=== PATIENT | female | born 1980 | race Caucasian/White ===

== ENCOUNTER 2017-04-27 17:13 | Inpatient (IN) | payer MEDICARE, OTHER ==
[~2017-04-27] VITALS: Ht 167.6 cm; Wt 150.0 kg
[~2017-04-27 17:13] MED LIST: ALBU1AER INH; DULE100A PO; FURO20TA PO; LORA0.5T PO; METO50TA PO; NEUR600T PO; PHEN12.5 PO; PRIL40CA PO; PROZ40CA PO; RENATAB6 PO; SPIR25TA PO; TRAZ100 PO; TYLE3 PO; Z.0.WALKERFRONT; [UNRECOGNIZED DRUG - REMARK]
[2017-04-27 17:15] VITALS: BP 143/69; PULSE 88; RESP 20; TEMP 97; O2SAT 97
--- NOTE | 2017-04-27 19:43 | PD ---
HPI Chief Complaint: Pegger Dobby Looms Problem Time Seen by Provider: 19:37 Travel History International Travel<30 days: No Contact w/Intl Traveler<30days: No Traveled to known affect area: No History of Present Illness HPI Diagnoses a 36-year-old female with history of renal failure, anemia, asthma, who presents today with complaints of left upper extremity pain. Patient has an AV fistula in her left upper extremity. She states that she lost her thrill this morning. She reports pain and swelling at the fistula site. She states she's not had dialysis for a year. When asked why she was not getting dialysis , she reported it was secondary to financial difficulties. She does make some urine. She states last time she had blood work was probably a year ago. She seen Dr. De La Vega in the past. She denies a chest pain, chest pressure. She does report lower extremity edema that is been worsening over last several weeks. She also reports dyspnea on exertion. PFSH Past Medical History Asthma: Yes Blood Disorders: No Anxiety: Yes Depression: Yes Heart Rhythm Problems: No Cancer: No Cardiovascular Problems: Yes High Cholesterol: Yes Chemotherapy: No Chest Pain: No Congestive Heart Failure: No Diabetes: No Diminished Hearing: No Endocrine: No GERD: Yes Glaucoma: No Genitourinary: Yes Hepatitis: No Hiatal Hernia: No Hypertension: Yes Musculoskeletal: Yes Neurologic: Yes Reproductive: No Respiratory: Yes (ASTHMA) Renal Failure: Yes (FISTULA TO LUE) ?: Not LMP: 04/11/17 Past Surgical History Abdominal Surgery: No AICD: No Arteriovenous Shunt: No Cardiac Surgery: No Ear Surgery: No Endocrine Surgery: No Eye Surgery: No Genitourinary Surgery: No Joint Replacement: No Thoracic Surgery: No Other Surgery: Yes (left forearm fistula 05/10/2012) Social History Alcohol Use: No Tobacco Use: Yes (09/26 ppd) Substance Use: No Allergies-Medications (Allergen,Severity, Reaction): Coded Allergies: Tetracycline (Verified Allergy, Severe, Anaphylaxis, 12/24/15) Triaminic (Verified Allergy, Severe, Anaphylaxis, 12/24/15) Reported Meds & Prescriptions Reported Meds & Active Scripts Active No Active Prescriptions or Reported Medications Review of Systems Except as stated in HPI: all other systems reviewed are Neg General / Constitutional: No: Fever, Chills Eyes: No: Blurred Vision HENT: No: Headaches, Lightheadedness, Neck Pain Cardiovascular: No: Chest Pain or Discomfort, Palpitations Respiratory: Positive: Shortness of Breath, No: Cough, Wheezing Gastrointestinal: No: Nausea, Vomiting, Abdominal Pain Genitourinary: Positive: Other (she does make some urine.), No: Dysuria Musculoskeletal: Positive: Weakness, Pain (left upper vasquez he pain at the AV fistula site.), No: Edema Neurologic: No: Weakness, Dizziness, Syncope, Headache Physical Exam Narrative GENERAL: Well-developed well-nourished female in no acute respiratory distress. SKIN: Focused skin assessment warm/dry. HEAD: Atraumatic. Normocephalic. EYES: No scleral icterus. No injection or drainage. ENT: No nasal bleeding or discharge. Mucous membranes pink and moist. NECK: Trachea midline. No JVD. Supple. CARDIOVASCULAR: Regular rate and rhythm. No murmur appreciated. RESPIRATORY: No accessory muscle use. Breath sounds equal bilaterally. Decreased breath sounds secondary to patient's habitus. GASTROINTESTINAL: Abdomen soft, non-tender, nondistended. Hepatic and splenic margins not palpable. MUSCULOSKELETAL: No obvious deformities. No clubbing. No cyanosis. 2+ edema bilateral lower extremities. No calf tenderness. No Homans sign. NEUROLOGICAL: Awake and alert. No obvious cranial nerve deficits. Motor grossly within normal limits. Normal speech. PSYCHIATRIC: Appropriate mood and affect; insight and judgment normal. Data Data Last Documented VS Vital Signs Date Time Temp Pulse Resp B/P Pulse Ox O2 Delivery O2 Flow Rate FiO2 04/27/17 19:56 18 04/27/17 17:15 97.0 88 143/69 97 Room Air Orders Electrocardiogram (04/27/17 19:37) Complete Blood Count With Diff (04/27/17 19:37) Comprehensive Metabolic Panel (04/27/17 19:37) Prothrombin Time / Inr (Pt) (04/27/17 19:37) Act Partial Throm Time (Ptt) (04/27/17 19:37) Urinalysis - C+S If Indicated (04/27/17 19:37) Magnesium (Mg) (04/27/17 19:37) Phosphorus (Po4) (04/27/17 19:37) Chest, Single Ap (04/27/17 19:37) Iv Access Insert/Monitor (04/27/17 19:37) Ecg Monitoring (04/27/17 19:37) Oximetry (04/27/17 19:37) Urine Culture (04/27/17 19:50) Ceftriaxone Inj (Rocephin Inj) (04/27/17 20:45) Admit Order (Ed Use Only) (04/27/17 21:02) Potassium Chloride (Kcl) (04/27/17 21:15) Labs Laboratory Tests Test 04/27/17 19:50 White Blood Count 15.4 TH/MM3 Red Blood Count 3.53 MIL/MM3 Hemoglobin 9.1 GM/DL Hematocrit 29.7 % Mean Corpuscular Volume 84.3 FL Mean Corpuscular Hemoglobin 25.9 PG Mean Corpuscular Hemoglobin 30.7 % Concent Red Cell Distribution Width 17.3 % Platelet Count 404 TH/MM3 Mean Platelet Volume 6.9 FL Neutrophils (%) (Auto) 77.2 % Lymphocytes (%) (Auto) 14.8 % Monocytes (%) (Auto) 5.4 % Eosinophils (%) (Auto) 2.1 % Basophils (%) (Auto) 0.5 % Neutrophils # (Auto) 11.9 TH/MM3 Lymphocytes # (Auto) 2.3 TH/MM3 Monocytes # (Auto) 0.8 TH/MM3 Eosinophils # (Auto) 0.3 TH/MM3 Basophils # (Auto) 0.1 TH/MM3 CBC Comment AUTO DIFF Prothrombin Time 10.2 SEC Prothromb Time International 0.9 RATIO Ratio Activated Partial 31.2 SEC Thromboplast Time Urine Color LIGHT-YELLOW Urine Turbidity HAZY Urine pH 6.0 Urine Specific [place] 1.009 Urine Protein 30 mg/dL Urine Glucose (UA) NEG mg/dL Urine Ketones NEG mg/dL Urine Occult Blood SMALL Urine Nitrite NEG Urine Bilirubin NEG Urine Urobilinogen LESS THAN 2.0 MG/DL Urine Leukocyte Esterase LARGE Urine RBC 4 /hpf Urine WBC 36 /hpf Urine Squamous Epithelial 2 /hpf Cells Urine Amorphous Sediment RARE Urine Bacteria MANY /hpf Urine Mucus FEW /lpf Microscopic Urinalysis Comment CULTURE INDICATED Sodium Level 135 MEQ/L Potassium Level 3.1 MEQ/L Chloride Level 106 MEQ/L Carbon Dioxide Level 18.4 MEQ/L Anion Gap 11 MEQ/L Blood Urea Nitrogen 61 MG/DL Creatinine 7.74 MG/DL Estimat Glomerular Filtration 6 ML/MIN Rate Random Glucose 92 MG/DL Calcium Level 7.3 MG/DL Protein Corrected Calcium 7.2 MG/DL Phosphorus Level 1.7 MG/DL Magnesium Level 2.1 MG/DL Total Bilirubin 0.2 MG/DL Aspartate Amino Transf 8 U/L (AST/SGOT) Alanine Aminotransferase 12 U/L (ALT/SGPT) Alkaline Phosphatase 46 U/L Total Protein 7.5 GM/DL Albumin 2.4 GM/DL MDM Medical Decision Making Medical Screen Exam Complete: Yes Emergency Medical Condition: Yes Differential Diagnosis AV fistula malfunction versus CHF versus anemia versus worsening renal failure. Narrative Course 36-year-old female history renal failure, dialysis dependent, who presents today with complaints of loss of thrill from her AV fistula site. The patient states she's not had dialysis for over a year. She does make urine. She states that she stopped getting dialysis because there is a change in her Medicaid portion of her insurance. The patient has Medicare a and B but states that the residual cause of her dialysis and laboratory testing would be covered by Medicaid. She states that as stopped and she stopped getting dialysis. She reports last seen her primary care physician over a year ago. She was seen Dr. Lambert's office. The patient has multiple electrolyte abnormalities consistent with chronic renal failure. Her potassium was 3.1. She's been given 10 mEq of potassium times one dose. She does have an elevated white blood cell count and a hemoglobin of 9.1. Her urinalysis shows evidence of a UTI. She's been started on Rocephin 1 g I V times one dose. Urine cultures are pending at this time. The case was discussed with Dr. Ledezma and he was amenable and agreeable to admit her to his service despite her not being seen for quite some time. The case was also discussed with Dr. Kwong, on-call for vascular surgery. He reported that he will be going out of town tomorrow afternoon and recommended we put a consult in for Dr. Cutler will be taking over. Consult has been placed for Dr. Cutler. A consult has also been placed for Dr. Mendes who has seen the patient for her renal failure prior to her stopping dialysis. She'll be a full admission. Diagnosis Primary Impression: Dialysis AV fistula malfunction Additional Impressions: Anemia Hypokalemia Hypocalcemia metabolic derangement. cystitis. Cystitis Leukocytosis Admitting Information Admitting Physician Requests: Admit Scripts No Active Prescriptions or Reported Meds Gilles Martínez MD Apr 27, 2017 19:42
[2017-04-27 20:23] LABS: BACTERIA, URINE MANY /hpf; BLOOD, URINE SMALL (NEG); COMMENT (UR) CULTURE INDICATED; CULTURE IF INDICATED CULTURE INDICATED; GLUCOSE,URINE NEG (NEG); KETONE, URINE NEG (NEG); MUCUS URINE FEW /lpf (OCC); NITRITE,URINE NEG (NEG); SQUAMOUS EPITHELIAL CELL URINE 2 /hpf (0-5); URINE COLOR LIGHT-YELLOW (YELLW/STRAW)
--- NOTE | 2017-04-27 20:27 | RADRPT ---
EXAM DATE/TIME: 04/27/2017 19:45 [facility] COMPARISON: CHEST SINGLE AP, September 05, 2013, 14:19. INDICATIONS : Short of breath. MEDICAL HISTORY : Renal insufficiency. asthma. SURGICAL HISTORY : None. ENCOUNTER: Initial ACUITY: 1 day PAIN SCORE: 0/10 LOCATION: Bilateral chest FINDINGS: A single view of the chest demonstrates the lungs to be symmetrically aerated without evidence of mas s, infiltrate or effusion. The cardiomediastinal contours are unremarkable. Osseous structures are intact. CONCLUSION: The lungs are clear. Rey Velasquez MD on April 27, 2017 at 20:25 Board Certified Radiologist. This report was verified electronically.
[2017-04-27 20:31] LABS: AUTOMATED NEUTROPHIL # 11.9 TH/MM3 (1.8-7.7); BASOPHIL # 0.1 TH/MM3 (0-0.2); BASOPHIL % 0.5 % (0.0-2.0); EOSINOPHIL # 0.3 TH/MM3 (0-0.4); EOSINOPHIL % 2.1 % (0.0-4.0); HEMATOCRIT 29.7 % (35.0-46.0); LYMPH % 14.8 % (9.0-44.0); LYMPHOCYTE # 2.3 TH/MM3 (1.0-4.8); MEAN CELL VOLUME 84.3 FL (80.0-100.0); MEAN CORPUSCULAR HEMOGLOBIN 25.9 PG (27.0-34.0); MEAN CORPUSCULAR HGB CONC 30.7 % (32.0-36.0); MONO % 5.4 % (0.0-8.0); NEUT % 77.2 % (16.0-70.0); PLATELET COUNT 404 TH/MM3 (150-450); RED BLOOD COUNT 3.53 MIL/MM3 (4.00-5.30); RED CELL DISTRIBUTION WIDTH 17.3 % (11.6-17.2); WHITE BLOOD COUNT 15.4 TH/MM3 (4.0-11.0)
[2017-04-27 20:40] LABS: BICARBONATE 18.4 MEQ/L (21.0-32.0); MAGNESIUM 2.1 MG/DL (1.5-2.5); POTASSIUM 3.1 MEQ/L (3.5-5.1); TOTAL BILIRUBIN ADULT 0.2 MG/DL (0.2-1.0)
[2017-04-27 20:42] LABS: CALCIUM-PROTEIN CORRECTED 7.2 MG/DL (8.5-10.1)
[2017-04-27] MEDS ORDERED: cefTRIAXone INJ 1,000 MG in SODIUM CHLORIDE 0.9% INJ 100 ML IV ONE (20:45)
[2017-04-27 20:46] LABS: APTT (PATIENT) 31.2 SEC (24.3-30.1); HEMO FLAGS AUTO DIFF; INTERNATIONAL NORMALIZED RATIO 0.9 RATIO; PROTHROMBIN TIME - PATIENT 10.2 SEC (9.8-11.6)
[2017-04-27] MEDS ORDERED: POTASSIUM CHLORIDE 10 MEQ CONTROLLED RELEASE TAB PO ONE (21:15)
[2017-04-27] MEDS ORDERED: NALOXONE HCL 0.4 MG/ML AMP IV PRN (21:45)
[2017-04-27] MEDS ORDERED: ACETAMINOPHEN 325 MG TAB PO PRN (21:45)
[2017-04-27] MEDS ORDERED: SODIUM CHLORIDE 0.9% FLUSH 10 ML FLUSH IV FLUSH PRN (21:45)
[2017-04-27 22:10] LABS: BANDS 1 % (0-6); EOSINOPHILS 2 % (0-4); MYELOCYTES 1 % (0-0); NEUTROPHIL # MANUAL DIFF 12.3 TH/MM3 (1.8-7.7); PLATELET ESTIMATE SMEAR HIGH (NORMAL); PLATELET MORPHOLOGY NORMAL (NORMAL); POLYS (SEG NEUTROPHILS) 78 % (16-70); SCAN/DIFF FINAL DIFF MANUAL; WBC DIFF SAMPLE 100
[2017-04-27 22:47] VITALS: RESP 18; O2SAT 100
[2017-04-28] VITALS (7 sets, daily range): BP systolic 109–144; BP diastolic 58–72; PULSE 58–90; RESP 16–18; TEMP 97.2–98.2; O2SAT 96–100
[2017-04-28] MEDS: ACETAMINOPHEN/HYDROcodone 325 MG/5 MG TAB PO PRN ×3 (00:08→21:09)
--- NOTE | 2017-04-28 06:56 | HHI.HP ---
History of Present Illness Service Family medicine Primary Care Physician Dimas Solorzano, DO Admission Diagnosis av fistula failure, renal failure, metabolic derangement. Diagnoses: (1) Dialysis AV fistula malfunction Diagnosis: Principal (2) ESRD (end stage renal disease) Diagnosis: Principal (3) Leukocytosis Diagnosis: Principal (4) Hypocalcemia Diagnosis: Principal (5) Hypokalemia Diagnosis: Principal (6) Anemia Diagnosis: Principal History of Present Illness Patient is a 36-year-old female with history of renal failure, anemia, asthma, who presents today with complaints of left upper extremity pain. Patient has an AV fistula in her left upper extremity. She states that she lost her thrill yesterday. She reports pain and swelling at the fistula site. She states she' s not had dialysis for a year. When asked why she was not getting dialysis, she reported it was secondary to financial difficulties. She does make some urine. She states last time she had blood work was probably a year ago. She seen Dr. De La Vega in the past. She denies a chest pain, chest pressure. She does report lower extremity edema that is been worsening over last several weeks. She also reports dyspnea on exertion. Review of Systems Constitutional: COMPLAINS OF: Fatigue, Change in appetite Respiratory: COMPLAINS OF: Shortness of breath (on exertion), DENIES: Cough, Snoring, Sputum production Cardiovascular: COMPLAINS OF: Lower Extremity Edema, DENIES: Chest pain, Palpitations Gastrointestinal: DENIES: Abdominal pain, Black stools, Constipation, Diarrhea Psychiatric: COMPLAINS OF: Anxiety Past Family Social History Allergies: Coded Allergies: Tetracycline (Verified Allergy, Severe, Anaphylaxis, 12/24/15) Triaminic (Verified Allergy, Severe, Anaphylaxis, 12/24/15) Past Medical History Asthma Anxiety depression HLD HTN Renal failure- Past Surgical History left forearm fistula Active Ordered Medications Current Medications Medications (Trade) Dose Ordered Sig/Harjit Route Start Time Stop Time Status Last Admin (NS Flush) 2 ml UNSCH PRN IV FLUSH 04/27/17 21:45 (NS Flush) 2 ml BID IV FLUSH 04/28/17 09:00 04/28/17 09:09 (Tylenol) 650 mg Q4H PRN PO 04/27/17 21:45 (Narcan Inj) 0.4 mg UNSCH PRN IV 04/27/17 21:45 (Habitrol 21 Mg Patch.24 Hr) 1 patch DAILY T-DERMAL 04/28/17 09:00 04/28/17 09:09 Miscellaneous Information 1 HS T-DERMAL 04/28/17 21:00 Acetaminophen/ Hydrocodone Bitart 1 tab 1 tab Q4H PRN PO 04/27/17 23:45 04/28/17 00:08 (NS 1000 ml Inj) 1,000 ml @ 0 mls/hr Q0M PRN IV 04/28/17 10:06 UNV Heparin Sodium (Porcine) 8000 units 8,000 units UNSCH PRN IVF 04/28/17 10:15 UNV Sodium Chloride 1,000 ml @ 200 mls/hr Q5H PRN IV 04/28/17 10:06 UNV (NS 1000 ml Inj) 1,000 ml @ 0 mls/hr Q0M PRN IV 04/28/17 10:06 UNV (Mannitol Inj) 12.5 gm UNSCH PRN IV 04/28/17 10:15 UNV (Albumin 25% Inj) 25 gm UNSCH PRN IV 04/28/17 10:15 UNV (NS Flush) 5 ml UNSCH PRN IV FLUSH 04/28/17 10:15 UNV (Heparin Inj) UNSCH PRN .XX 04/28/17 10:15 UNV (Gentamicin (Dialysis) Inj) 20 mg UNSCH PRN IV 04/28/17 10:15 UNV (Zofran Inj) 4 mg UNSCH PRN IV 04/28/17 10:15 UNV (Tylenol) 650 mg UNSCH PRN PO 04/28/17 10:15 UNV (Benadryl) 25 mg UNSCH PRN PO 04/28/17 10:15 UNV (Nitrostat Sl) 0.4 mg UNSCH PRN SL 04/28/17 10:15 UNV (Catapres) 0.1 mg UNSCH PRN PO 04/28/17 10:15 UNV (Epogen Inj) 4,000 units UNSCH PRN IV 04/28/17 10:15 UNV (Gelfoam 12 Mm/7 Mm Top) 1 foam UNSCH PRN TOP 04/28/17 10:15 UNV (K-Phos) 500 mg DAILY PO 04/28/17 12:00 UNV Family History Mother and father with HTN Social History Smokes 1 pk per day No ETOH use Lives with parents Disabled Physical Exam Vital Signs Vital Signs Date Time Temp Pulse Resp B/P Pulse Ox O2 Delivery O2 Flow Rate FiO2 04/28/17 04:00 97.2 58 18 115/66 96 04/28/17 00:00 98.2 73 17 109/60 98 04/27/17 22:47 18 100 04/27/17 19:56 18 04/27/17 17:15 97.0 88 20 143/69 97 Room Air Physical Exam GENERAL: Alert and cooperative. Obese SKIN: No rashes, ecchymoses or lesions. Cool and dry. Left arm fistula site with swelling EYES: Pupils equal round and reactive.No injection or drainage. CARDIOVASCULAR: Regular rate and rhythm without murmurs, gallops, or rubs. RESPIRATORY: Clear to auscultation. Breath sounds equal bilaterally. No wheezes , rales, or rhonchi. GASTROINTESTINAL: Abdomen soft, non-tender, and large. No hepato-splenomegaly, or palpable masses. No guarding. MUSCULOSKELETAL: Extremities without clubbing, cyanosis, or edema. No joint tenderness, effusion, or edema noted. No calf tenderness. Negative Homans sign bilaterally. NEUROLOGICAL: Awake and alert. Normal speech. Laboratory Laboratory Tests Test 04/27/17 19:50 White Blood Count 15.4 Red Blood Count 3.53 Hemoglobin 9.1 Hematocrit 29.7 Mean Corpuscular Volume 84.3 Mean Corpuscular Hemoglobin 25.9 Mean Corpuscular Hemoglobin 30.7 Concent Red Cell Distribution Width 17.3 Platelet Count 404 Mean Platelet Volume 6.9 Neutrophils (%) (Auto) 77.2 Lymphocytes (%) (Auto) 14.8 Monocytes (%) (Auto) 5.4 Eosinophils (%) (Auto) 2.1 Basophils (%) (Auto) 0.5 Neutrophils # (Auto) 11.9 Lymphocytes # (Auto) 2.3 Monocytes # (Auto) 0.8 Eosinophils # (Auto) 0.3 Basophils # (Auto) 0.1 CBC Comment AUTO DIFF Differential Total Cells 100 Counted Neutrophils % (Manual) 78 Band Neutrophils % 1 Lymphocytes % 13 Monocytes % 5 Eosinophils % 2 Neutrophils # (Manual) 12.3 Myelocytes 1 Differential Comment FINAL DIFF MANUAL Platelet Estimate HIGH Platelet Morphology Comment NORMAL Prothrombin Time 10.2 Prothromb Time International 0.9 Ratio Activated Partial 31.2 Thromboplast Time Urine Color LIGHT-YELLOW Urine Turbidity HAZY Urine pH 6.0 Urine Specific [place] 1.009 Urine Protein 30 Urine Glucose (UA) NEG Urine Ketones NEG Urine Occult Blood SMALL Urine Nitrite NEG Urine Bilirubin NEG Urine Urobilinogen LESS THAN 2.0 Urine Leukocyte Esterase LARGE Urine RBC 4 Urine WBC 36 Urine Squamous Epithelial 2 Cells Urine Amorphous Sediment RARE Urine Bacteria MANY Urine Mucus FEW Microscopic Urinalysis Comment CULTURE INDICATED Sodium Level 135 Potassium Level 3.1 Chloride Level 106 Carbon Dioxide Level 18.4 Anion Gap 11 Blood Urea Nitrogen 61 Creatinine 7.74 Estimat Glomerular Filtration 6 Rate Random Glucose 92 Calcium Level 7.3 Protein Corrected Calcium 7.2 Phosphorus Level 1.7 Magnesium Level 2.1 Total Bilirubin 0.2 Aspartate Amino Transf 8 (AST/SGOT) Alanine Aminotransferase 12 (ALT/SGPT) Alkaline Phosphatase 46 Total Protein 7.5 Albumin 2.4 Date/Time Procedure Status Source Growth 04/27/17 19:50 Urine Culture Worksheet Urine Random Urine Pending Result Diagram: 04/27/17194904/27/171949 Imaging Last 72 hours Impressions Chest X-Ray 04/27/171936 Signed Impressions: Service Date/Time: April 19:45 - CONCLUSION: The lungs are clear. Rey Velasquez MD Assessment and Plan Problem List: (1) Dialysis AV fistula malfunction Status: Acute Plan: Left arm fistula site with swelling. No redness noted. Vascular surgery consulted (2) ESRD (end stage renal disease) Status: Acute Plan: Patient with creat of 7.70 and BUN 79. Uremic Nephrology consulted. Plan for peritoneal dialysis. Interventional to place. (3) Leukocytosis Status: Acute Plan: Has received one dose of Rocephin. WBC improved at 12.5 Urine cultures pending (4) Hypocalcemia Status: Acute Plan: Likely due to secondary hyperparathyroidism PTH pending (5) Hypokalemia Status: Acute Plan: Potassium 3.2 will have nephrology replace (6) Anemia Status: Acute Plan: HGB 7.7. Most likely form CKD. Anemia panel ordered Assessment and Plan Assessment and plan discussed with Dr. Solorzano Discussed Condition With Nursing Physician Attestation I and the [employer]AMP FORKL[employer] OPERATOR have both examined this patient and reviewed this note and I agree with these findings and plan of care. Jennifer Calvo Apr 28, 2017 06:55
[2017-04-28] MEDS: SODIUM CHLORIDE 0.9% FLUSH 10 ML FLUSH IV FLUSH SCH ×2 (09:09→20:12)
[2017-04-28] MEDS: NICOTINE 21 MG/24 HR PATCH T-DERMAL SCH (09:09)
[2017-04-28 09:56] LABS: AUTOMATED NEUTROPHIL # 9.3 TH/MM3 (1.8-7.7); BASOPHIL # 0.1 TH/MM3 (0-0.2); BASOPHIL % 0.8 % (0.0-2.0); EOSINOPHIL # 0.3 TH/MM3 (0-0.4); EOSINOPHIL % 2.3 % (0.0-4.0); HEMATOCRIT 24.3 % (35.0-46.0); HEMO FLAGS DIFF FINAL; LYMPH % 17.9 % (9.0-44.0); LYMPHOCYTE # 2.2 TH/MM3 (1.0-4.8); MEAN CELL VOLUME 84.9 FL (80.0-100.0); MEAN CORPUSCULAR HEMOGLOBIN 26.7 PG (27.0-34.0); MEAN CORPUSCULAR HGB CONC 31.5 % (32.0-36.0); MONO % 4.9 % (0.0-8.0); NEUT % 74.1 % (16.0-70.0); PLATELET COUNT 320 TH/MM3 (150-450); RED BLOOD COUNT 2.86 MIL/MM3 (4.00-5.30); RED CELL DISTRIBUTION WIDTH 16.8 % (11.6-17.2); WHITE BLOOD COUNT 12.5 TH/MM3 (4.0-11.0)
--- NOTE | 2017-04-28 10:04 | PD.CONS ---
HPI Service Nephrology Consult Requested By Dr. Martínez Reason for Consult End-stage renal disease Primary Care Physician Dimas Solorzano, DO History of Present Illness 36-year-old white female with morbid obesity, asthma, hypertension, ESRD who is noncompliant with hemodialysis and stop coming to the dialysis center last year , she had admission in the hospital in December 2015 at that time she was on hemodialysis and afterward placed in the clinic and she refused to show up she was seen in the clinic one time and promised to resume her dialysis but she never did, she developed AV fistula pain in the left arm with the swelling near the arterial site, she states her appetite is poor, gets easily fatigued, she is afraid of needles and stated her skin was tightening from needle alejandro and thus far she did not do dialysis, she can consider peritoneal dialysis. Review of Systems Constitutional: COMPLAINS OF: Fatigue Gastrointestinal: COMPLAINS OF: Anorexia Musculoskeletal: COMPLAINS OF: Joint pain, Muscle aches Psychiatric: COMPLAINS OF: Anxiety Past Family Social History Allergies: Coded Allergies: Tetracycline (Verified Allergy, Severe, Anaphylaxis, 12/24/15) Triaminic (Verified Allergy, Severe, Anaphylaxis, 12/24/15) Past Medical History End-stage renal disease Anemia Hyperparathyroidism Uremia AV fistula fistula placed Asthma Morbid obesity Noncompliance with dialysis Past Surgical History AV fistula left arm ORIF right humerus Reported Medications Reported Meds & Active Scripts Active No Active Prescriptions or Reported Medications Active Ordered Medications Current Medications Medications (Trade) Dose Ordered Sig/Harjit Route Start Time Stop Time Status Last Admin (NS Flush) 2 ml UNSCH PRN IV FLUSH 04/27/17 21:45 (NS Flush) 2 ml BID IV FLUSH 04/28/17 09:00 04/28/17 09:09 (Tylenol) 650 mg Q4H PRN PO 04/27/17 21:45 (Narcan Inj) 0.4 mg UNSCH PRN IV 04/27/17 21:45 (Habitrol 21 Mg Patch.24 Hr) 1 patch DAILY T-DERMAL 04/28/17 09:00 04/28/17 09:09 Miscellaneous Information 1 HS T-DERMAL 04/28/17 21:00 ([place] 5-325 Mg) 1 tab Q4H PRN PO 04/27/17 23:45 04/28/17 00:08 Family History Noncontributory Social History Smokes cigarettes half a pack per day Denies alcohol abuse Physical Exam Vital Signs Vital Signs Date Time Temp Pulse Resp B/P Pulse Ox O2 Delivery O2 Flow Rate FiO2 04/28/17 08:00 97.4 79 18 128/62 100 04/28/17 04:00 97.2 58 18 115/66 96 04/28/17 00:00 98.2 73 17 109/60 98 04/27/17 22:47 18 100 04/27/17 19:56 18 04/27/17 17:15 97.0 88 20 143/69 97 Room Air Physical Exam GENERAL: Well-nourished, well-developed obese patient. SKIN: Warm and dry. HEAD: Normocephalic. EYES: No scleral icterus. No injection or drainage. NECK: Supple, trachea midline. No JVD or lymphadenopathy. CARDIOVASCULAR: Regular rate and rhythm without murmurs, gallops, or rubs. RESPIRATORY: Breath sounds equal bilaterally. No accessory muscle use. GASTROINTESTINAL: Abdomen soft, non-tender, nondistended. EXTREMITIES: No cyanosis, AV fistula with bulging swelling tenderness present Lower extremity edema 2+ NEUROLOGICAL: Awake, alert, and oriented x 3. Non-focal. Laboratory Laboratory Tests Test 04/27/17 19:50 White Blood Count 15.4 Red Blood Count 3.53 Hemoglobin 9.1 Hematocrit 29.7 Mean Corpuscular Volume 84.3 Mean Corpuscular Hemoglobin 25.9 Mean Corpuscular Hemoglobin 30.7 Concent Red Cell Distribution Width 17.3 Platelet Count 404 Mean Platelet Volume 6.9 Neutrophils (%) (Auto) 77.2 Lymphocytes (%) (Auto) 14.8 Monocytes (%) (Auto) 5.4 Eosinophils (%) (Auto) 2.1 Basophils (%) (Auto) 0.5 Neutrophils # (Auto) 11.9 Lymphocytes # (Auto) 2.3 Monocytes # (Auto) 0.8 Eosinophils # (Auto) 0.3 Basophils # (Auto) 0.1 CBC Comment AUTO DIFF Differential Total Cells 100 Counted Neutrophils % (Manual) 78 Band Neutrophils % 1 Lymphocytes % 13 Monocytes % 5 Eosinophils % 2 Neutrophils # (Manual) 12.3 Myelocytes 1 Differential Comment FINAL DIFF MANUAL Platelet Estimate HIGH Platelet Morphology Comment NORMAL Prothrombin Time 10.2 Prothromb Time International 0.9 Ratio Activated Partial 31.2 Thromboplast Time Urine Color LIGHT-YELLOW Urine Turbidity HAZY Urine pH 6.0 Urine Specific [place] 1.009 Urine Protein 30 Urine Glucose (UA) NEG Urine Ketones NEG Urine Occult Blood SMALL Urine Nitrite NEG Urine Bilirubin NEG Urine Urobilinogen LESS THAN 2.0 Urine Leukocyte Esterase LARGE Urine RBC 4 Urine WBC 36 Urine Squamous Epithelial 2 Cells Urine Amorphous Sediment RARE Urine Bacteria MANY Urine Mucus FEW Microscopic Urinalysis Comment CULTURE INDICATED Sodium Level 135 Potassium Level 3.1 Chloride Level 106 Carbon Dioxide Level 18.4 Anion Gap 11 Blood Urea Nitrogen 61 Creatinine 7.74 Estimat Glomerular Filtration 6 Rate Random Glucose 92 Calcium Level 7.3 Protein Corrected Calcium 7.2 Phosphorus Level 1.7 Magnesium Level 2.1 Total Bilirubin 0.2 Aspartate Amino Transf 8 (AST/SGOT) Alanine Aminotransferase 12 (ALT/SGPT) Alkaline Phosphatase 46 Total Protein 7.5 Albumin 2.4 Date/Time Procedure Status Source Growth 04/27/17 19:50 Urine Culture Worksheet Urine Random Urine Pending Result Diagram: 04/27/17 1950 04/27/171949 Imaging Last Impressions Chest X-Ray 04/27/171936 Signed Impressions: Service Date/Time: April 19:45 - CONCLUSION: The lungs are clear. Rey Velasquez MD Assessment and Plan Problem List: (1) ESRD (end stage renal disease) Plan: I have a lengthy discussion with her and though she has anxiety and depression, pH of needles and has stopped coming to the office and dialysis center, patient is again reminded that she needs renal replacement therapy and agreed to proceed with peritoneal dialysis, I did ask her about placement of catheter as her AV fistula malfunctioning and need surgical intervention. She agreed to it and I will place a consult to radiology for Vas-Cath. She understands she needs to be committed to do dialysis either peritoneal dialysis or hemodialysis as leaving a port for dialysis can be dangerous if she discontinued her dialysis on her own, complication includes a infections, blood clots, bleeding problems and can lead to increased morbidity and mortality. (2) Uremia Plan: She agreed to do dialysis (3) Dialysis AV fistula malfunction Plan: Vascular surgery consulted (4) Cystitis Plan: Started on ceftriaxone 1 dose follow cultures (5) Leukocytosis Plan: Likely due to infection and vascular compromise in the left forearm (6) Hypokalemia Plan: Malnutrition with low calcium and low protein (7) Hypocalcemia Plan: Likely due to secondary hyperparathyroidism (8) Hypertension Plan: Anterior to monitor Bipin De La Vega MD Apr 28, 2017 10:04
[2017-04-28] MEDS ORDERED: SODIUM CHLOR 0.9% 1000 ML INJ 1,000 ML IV PRN ×3 (10:06)
[2017-04-28 10:12] LABS: ANION GAP 10 MEQ/L (5-15); AST (GOT) 7 U/L (15-37); BICARBONATE 21.6 MEQ/L (21.0-32.0); BLOOD UREA NITROGEN 59 MG/DL (7-18); CHLORIDE 107 MEQ/L (98-107); GLOMERULAR FILTRATION RATE 6 ML/MIN (>89); POTASSIUM 3.2 MEQ/L (3.5-5.1); SODIUM (NA) 139 MEQ/L (136-145)
[2017-04-28] MEDS ORDERED: diphenhydrAMINE HCL 25 MG CAP PO PRN (10:15)
[2017-04-28] MEDS ORDERED: NITROGLYCERIN 0.4 MG SL 25 TABS/BTL SL PRN (10:15)
[2017-04-28] MEDS ORDERED: MANNITOL 12.5 GM/50 ML VIAL IV PRN (10:15)
[2017-04-28] MEDS ORDERED: GELATIN 12 MM/7 MM FOAM TOP PRN (10:15)
[2017-04-28] MEDS ORDERED: HEPARIN SODIUM - IV 10,000 UNITS/10 ML VIAL IVF PRN (10:15)
[2017-04-28] MEDS ORDERED: SODIUM CHLORIDE 0.9% FLUSH 10 ML FLUSH IV FLUSH PRN (10:15)
[2017-04-28] MEDS ORDERED: ALBUMIN HUMAN 25% 25 GM/100 ML BAGP IV PRN (10:15)
[2017-04-28] MEDS ORDERED: cloNIDine HCL 0.1 MG TAB PO PRN (10:15)
[2017-04-28 10:16] LABS: ALKALINE PHOSPHATASE 37 U/L (45-117); ALT (GPT) 9 U/L (10-53); TOTAL BILIRUBIN ADULT 0.1 MG/DL (0.2-1.0)
[2017-04-28] MEDS: POTASSIUM PHOSPHATE MONOBASIC 500 MG TAB PO SCH (10:57)
--- NOTE | 2017-04-28 11:54 | EKG ---
Date Performed: 04/27/2017 Time Performed: 19:49:57 PTAGE: 36 years EKG: Sinus rhythm ST DEVIATION AND MODERATE T-WAVE ABNORMALITY, CONSIDER LATERAL ISCHEMIA ABNORMAL ECG PREVIOUS TRACING : 02/18/2016 15.03 Compared to the prior study, anterolateral T-wave changes a nd ST-T segment depression is new. DOCTOR: Wally Galloway Interpretating Date/Time 04/28/2017 11:52:21
--- NOTE | 2017-04-28 12:17 | PD.RAD ---
Post Procedure Progress Note Pre Procedure Diagnosis: (1) Dialysis AV fistula malfunction (2) Renal failure Post Procedure Diagnosis: (1) Dialysis AV fistula malfunction (2) Renal failure Procedure Date: Apr 28, 2017 Supervising Radiologist: Rey Barrett JR Proceduralist/Assist: Vangie Soria, RT(R), Natalya Plasencia RT(R)() Anesthesia: Local Plan of Activity Patient to Unit: Nursing Unit Patient Condition: Good See PACS Report for procedural detail/treatment Central Venous Access Device Procedure 1 Right Internal Jugular Hemodialysis Catheter Non-Tunneled Placement dual lumen Italian: 14 Findings: Vascath in good position. OK to use. Jr. Arnold,Rey Olvera MD Apr 28, 2017 12:17
[2017-04-28] MEDS ORDERED: HEPARIN SODIUM - IV 2,000 UNITS/2 ML VIAL IV FLUSH PRN (12:30)
[2017-04-28] MEDS ORDERED: SODIUM CHLORIDE 0.9% FLUSH 10 ML FLUSH IVF PRN (12:30)
--- NOTE | 2017-04-28 14:31 | RADRPT ---
EXAM DATE/TIME: 04/28/2017 11:48 [facility] COMPARISON: No previous studies available for comparison. INDICATIONS : Patient is in need of placement of a temporary dialysis catheter due to ESRD. MEDICAL HISTORY : History of asthma, HTN, DM, anemia, hyperparathyroidism, uremia. SURGICAL HISTORY : Left AVF placement, right humerus ORIF, permacath placement and removal. ENCOUNTER: Initial ACUITY: 1 day PAIN SCORE: 0/10 FLUORO TIME: 0.4 minutes IMAGE SERIES: 1 ACCESS: Right internal jugular vein MEDICATION(S): 1.) 2500 units Heparin catheter lock DEVICE(S): 1.) 14 Israeli dual lumen 20 cm Schon catheter PROCEDURE : 1. Ultrasound guided venipuncture. 2. Fluoroscopic guidance. 3. Central line placement. The risks, benefits and alternatives to the procedure were explained and verbal and written consent w as obtained. The site was prepped in sterile fashion. Full sterile technique was used, including ca p, mask, sterile gloves and gown and a large sterile sheet. Hand hygiene and 2% chlorhexidine prep w as utilized per protocol for cutaneous antisepsis with appropriate dry time for site. The skin and subcutaneous tissues were infiltrated with local anesthetic solution. A suitable site a claudia the vein was selected with ultrasound and fluoroscopic guidance. A small incision was made. Th e vein was accessed under direct ultrasound visualization using the micropuncture technique. The landy ropuncture set was exchanged for a 0.035 wire. The tract was dilated. The catheter was advanced int o position under direct fluoroscopic visualization. The catheter was fixed in place with suture and a sterile dressing was applied. The patient tolerated the procedure well and there were no complications. CONCLUSION: Uncomplicated line placement as above. Rey Barrett Jr., MD on April 28, 2017 at 13:48 Board Certified Radiologist. This report was verified electronically.
[2017-04-28] MEDS: ACETAMINOPHEN 325 MG TAB PO PRN (14:41)
[2017-04-28] MEDS: HEPARIN SODIUM - IV 10,000 UNITS/10 ML VIAL PRN (14:41)
[2017-04-28] MEDS: EPOETIN ALFA 10,000 UNITS/ML VIAL IV PRN (14:41)
[2017-04-28] MEDS: GENTAMICIN SULFATE (DIALYSIS USE ONLY) 20 MG/2 ML VIAL IV PRN (14:41)
--- NOTE | 2017-04-28 17:23 | RADRPT ---
EXAM DATE/TIME: 04/28/2017 16:03 [facility] COMPARISON: No previous studies available for comparison. INDICATIONS : Arterial venous fistula. MEDICAL HISTORY : Hypercholesterolemia. Hypertension. Asthma. Dyspnea. GERD. Renal failure. Diabetes. Depression. SURGICAL HISTORY : Fistula left lower arm. ORIF right humerus. ENCOUNTER: Initial ACUITY: 4 - 6 days PAIN SCORE: 6/10 LOCATION: Bilateral arms. CEPHALIC: ORIGIN: Right 4 mm Left 7 mm MID-ARM: Right 4 mm Left 7 mm ELBOW: Right 5 mm Left 7 mm BASILIC: ORIGIN: Right 4 mm Left 8 mm MID-ARM: Right 4 mm Left 7 mm ELBOW: Right 5 mm Left 6 mm ARTERIES: BRACHIAL: Right 3 mm Left 5 mm ULNAR: Right 3 mm Left 3 mm RADIAL: Right 2 mm Left 4 mm VEINS: RADIAL: Right 2 mm Left 2 mm ULNAR: Right 1 mm Left 1 mm FINDINGS: The venous system of the upper extremities are patent by color Doppler imaging. Measurements of the arm veins (in mm) are listed above. CONCLUSION: Upper extremity venous mapping as described above. Ritesh Resendiz MD FACR on April 28, 2017 at 17:21 Board Certified Radiologist. This report was verified electronically.
--- NOTE | 2017-04-28 17:24 | RADRPT ---
EXAM DATE/TIME: 04/28/2017 15:37 [facility] COMPARISON: No previous studies available for comparison. INDICATIONS : Arterial venous fistula. MEDICAL HISTORY : Hypercholesterolemia. Hypertension. Asthma. Dyspnea. GERD. Renal failure. Diabetes. Depression. SURGICAL HISTORY : Fistula left upper arm. ORIF right humerus. ENCOUNTER: Initial ACUITY: 1 day PAIN SCORE: 2/10 LOCATION: Bilateral arms. FINDINGS: RIGHT UPPER EXTREMITY: There is spontaneous flow documented in the brachial, basilic, cephalic, axillary, and subclavian vei ns. The vessels are compressible and augmentation response is documented. No filling defects are se en. The flow is phasic with respiration. Direction of flow in the jugular vein is caudal. LEFT UPPER EXTREMITY: There is spontaneous flow documented in the brachial, basilic, cephalic, axillary, and subclavian vei ns. The vessels are compressible and augmentation response is documented. No filling defects are se en. The flow is phasic with respiration. Direction of flow in the jugular vein is caudal. CONCLUSION: Negative for deep or superficial thrombosis. Ritesh Resendiz MD FACR on April 28, 2017 at 17:22 Board Certified Radiologist. This report was verified electronically.
--- NOTE | 2017-04-28 17:52 | PD.CONS ---
cc: Nii Wang MD HPI Service General Surgery Consult Requested By Dr. De La Vega Reason for Consult Peritoneal dialysis catheter placement Primary Care Physician Dimas Solorzano, DO History of Present Illness This is a 36-year-old female with a past medical history of morbid obesity, asthma, hypertension, and end-stage renal disease--- noncompliant. The patient came to the emergency room for evaluation of her left AV fistula which was causing her pain. She denies fevers and chills. The patient has been on hemodialysis for several years but is very noncompliant. Her last hemodialysis treatment was approximately 1 year ago. The patient does not like hemodialysis and states that the needle used to access her AV fistula cause her pain. She would like to be evaluated for a peritoneal dialysis catheter placement. Review of Systems Constitutional: DENIES: Fatigue, Fever, Chills Endocrine: DENIES: Polydipsia, Polyuria, Polyphagia Eyes: DENIES: Eye inflammation Ears, nose, mouth, throat: DENIES: Vertigo Respiratory: DENIES: Snoring Cardiovascular: DENIES: Palpitations Gastrointestinal: DENIES: Black stools, Bloody stools Genitourinary: DENIES: Urinary frequency Musculoskeletal: DENIES: Joint pain Integumentary: DENIES: Abnormal pigmentation Hematologic/lymphatic: DENIES: Bruising Immunologic/allergic: DENIES: Eczema Neurologic: DENIES: Headache, Localized weakness Psychiatric: DENIES: Mood changes, Depression, Hallucinations Past Family Social History Past Medical History Morbidly obese Asthma next find hypertension End-stage renal disease--- noncompliant with hemodialysis Past Surgical History Left AV fistula placement ORIF of humerus Reported Medications See chart Allergies: Coded Allergies: Tetracycline (Verified Allergy, Severe, Anaphylaxis, 12/24/15) Triaminic (Verified Allergy, Severe, Anaphylaxis, 12/24/15) Active Ordered Medications Current Medications Medications (Trade) Dose Ordered Sig/Harjit Route Start Time Stop Time Status Last Admin (NS Flush) 2 ml UNSCH PRN IV FLUSH 04/27/17 21:45 (NS Flush) 2 ml BID IV FLUSH 04/28/17 09:00 04/28/17 09:09 (Tylenol) 650 mg Q4H PRN PO 04/27/17 21:45 (Narcan Inj) 0.4 mg UNSCH PRN IV 04/27/17 21:45 (Habitrol 21 Mg Patch.24 Hr) 1 patch DAILY T-DERMAL 04/28/17 09:00 04/28/17 09:09 Miscellaneous Information 1 HS T-DERMAL 04/28/17 21:00 Acetaminophen/ Hydrocodone Bitart 1 tab 1 tab Q4H PRN PO 04/27/17 23:45 04/28/17 15:35 (NS 1000 ml Inj) 1,000 ml @ 0 mls/hr Q0M PRN IV 04/28/17 10:06 Heparin Sodium (Porcine) 8000 units 8,000 units UNSCH PRN IVF 04/28/17 10:15 Sodium Chloride 1,000 ml @ 200 mls/hr Q5H PRN IV 04/28/17 10:06 (NS 1000 ml Inj) 1,000 ml @ 0 mls/hr Q0M PRN IV 04/28/17 10:06 (Mannitol Inj) 12.5 gm UNSCH PRN IV 04/28/17 10:15 (Albumin 25% Inj) 25 gm UNSCH PRN IV 04/28/17 10:15 (NS Flush) 5 ml UNSCH PRN IV FLUSH 04/28/17 10:15 (Heparin Inj) UNSCH PRN .XX 04/28/17 10:15 04/28/17 14:41 (Gentamicin (Dialysis) Inj) 20 mg UNSCH PRN IV 04/28/17 10:15 04/28/17 14:41 (Zofran Inj) 4 mg UNSCH PRN IV 04/28/17 10:15 (Tylenol) 650 mg UNSCH PRN PO 04/28/17 10:15 04/28/17 14:41 (Benadryl) 25 mg UNSCH PRN PO 04/28/17 10:15 (Nitrostat Sl) 0.4 mg UNSCH PRN SL 04/28/17 10:15 (Catapres) 0.1 mg UNSCH PRN PO 04/28/17 10:15 (Epogen Inj) 4,000 units UNSCH PRN IV 04/28/17 10:15 04/28/17 14:41 (Gelfoam 12 Mm/7 Mm Top) 1 foam UNSCH PRN TOP 04/28/17 10:15 (K-Phos) 500 mg DAILY PO 04/28/17 12:00 04/28/17 10:57 (Pepcid) 10 mg BID PO 04/28/17 21:00 (NS Flush) UNSCH PRN IVF 04/28/17 12:30 (Heparin Inj) UNSCH PRN IV FLUSH 04/28/17 12:30 Family History Both mother and father had hypertension Social History Positive tobacco use--approximately 1 pack per day Denies ETOH use Denies illicit drug use Physical Exam Vital Signs Vital Signs Date Time Temp Pulse Resp B/P Pulse Ox O2 Delivery O2 Flow Rate FiO2 04/28/17 16:35 18 04/28/17 15:41 18 04/28/17 12:00 98.0 71 18 113/58 100 04/28/17 08:00 97.4 79 18 128/62 100 04/28/17 04:00 97.2 58 18 115/66 96 04/28/17 00:00 98.2 73 17 109/60 98 04/27/17 22:47 18 100 04/27/17 19:56 18 Physical Exam GENERAL: Morbidly obese 36-year-old female resting in bed in no acute distress. SKIN: Left AV fistula--tender to palpation; no bruits/thrill HEAD: Atraumatic. Normocephalic. EYES: Pupils equal and round. No scleral icterus. No injection or drainage. ENT: No nasal bleeding or discharge. Mucous membranes pink and moist. NECK: Trachea midline. CARDIOVASCULAR: Regular rate and rhythm. RESPIRATORY: No accessory muscle use. Clear to auscultation. Breath sounds equal bilaterally. GASTROINTESTINAL: Abdomen soft, non-tender, nondistended. Obese. MUSCULOSKELETAL: Extremities without clubbing, cyanosis, or edema. No obvious deformities. NEUROLOGICAL: Awake and alert. No obvious cranial nerve deficits. Motor grossly within normal limits. Five out of 5 muscle strength in the arms and legs. Normal speech. PSYCHIATRIC: Appropriate mood and affect; insight and judgment normal. Laboratory Laboratory Tests Test 04/27/17 04/28/17 19:50 08:30 White Blood Count 15.4 12.5 Red Blood Count 3.53 2.86 Hemoglobin 9.1 7.7 Hematocrit 29.7 24.3 Mean Corpuscular Volume 84.3 84.9 Mean Corpuscular Hemoglobin 25.9 26.7 Mean Corpuscular Hemoglobin 30.7 31.5 Concent Red Cell Distribution Width 17.3 16.8 Platelet Count 404 320 Mean Platelet Volume 6.9 7.3 Neutrophils (%) (Auto) 77.2 74.1 Lymphocytes (%) (Auto) 14.8 17.9 Monocytes (%) (Auto) 5.4 4.9 Eosinophils (%) (Auto) 2.1 2.3 Basophils (%) (Auto) 0.5 0.8 Neutrophils # (Auto) 11.9 9.3 Lymphocytes # (Auto) 2.3 2.2 Monocytes # (Auto) 0.8 0.6 Eosinophils # (Auto) 0.3 0.3 Basophils # (Auto) 0.1 0.1 CBC Comment AUTO DIFF DIFF FINAL Differential Total Cells 100 Counted Neutrophils % (Manual) 78 Band Neutrophils % 1 Lymphocytes % 13 Monocytes % 5 Eosinophils % 2 Neutrophils # (Manual) 12.3 Myelocytes 1 Differential Comment FINAL DIFF MANUAL Platelet Estimate HIGH Platelet Morphology Comment NORMAL Prothrombin Time 10.2 Prothromb Time International 0.9 Ratio Activated Partial 31.2 Thromboplast Time Urine Color LIGHT-YELLOW Urine Turbidity HAZY Urine pH 6.0 Urine Specific Brohard 1.009 Urine Protein 30 Urine Glucose (UA) NEG Urine Ketones NEG Urine Occult Blood SMALL Urine Nitrite NEG Urine Bilirubin NEG Urine Urobilinogen LESS THAN 2.0 Urine Leukocyte Esterase LARGE Urine RBC 4 Urine WBC 36 Urine Squamous Epithelial 2 Cells Urine Amorphous Sediment RARE Urine Bacteria MANY Urine Mucus FEW Microscopic Urinalysis Comment CULTURE INDICATED Sodium Level 135 139 Potassium Level 3.1 3.2 Chloride Level 106 107 Carbon Dioxide Level 18.4 21.6 Anion Gap 11 10 Blood Urea Nitrogen 61 59 Creatinine 7.74 7.70 Estimat Glomerular Filtration 6 6 Rate Random Glucose 92 122 Calcium Level 7.3 7.5 Protein Corrected Calcium 7.2 Phosphorus Level 1.7 2.5 Magnesium Level 2.1 Total Bilirubin 0.2 0.1 Aspartate Amino Transf 8 7 (AST/SGOT) Alanine Aminotransferase 12 9 (ALT/SGPT) Alkaline Phosphatase 46 37 Total Protein 7.5 6.7 Albumin 2.4 2.1 25-Hydroxy Vitamin D Total 21.6 Parathyroid Hormone (Intact) 528.6 Hepatitis A IgM Antibody NEGATIVE Hepatitis B Surface Antigen NEGATIVE Hepatitis B Core IgM Antibody NEGATIVE Hepatitis C Antibody NEGATIVE Date/Time Procedure Status Source Growth 04/27/17 19:50 Urine Culture - Preliminary Resulted Urine Random Urine IMMATURE GROWTH - REINCUBATE Result Diagram: 05/03/1765405/03/17654 Assessment and Plan Assessment and Plan 36-year-old female with ESRD; noncompliant with hemodialysis; evaluation for peritoneal dialysis catheter -Dr. Cutler following patient for possible AV fistula revision/placement of new AV fistula -US mapping completed today -Renal diet -Patient is noncompliant with hemodialysis currently -Patient will need to be instructed and taught extensively on peritoneal dialysis catheter care and management -At this time would plan to proceed with AV fistula placement/revision -Will follow along for peritoneal dialysis catheter placement if patient demonstrates compliance with hemodialysis -Thank you for this consult; we will continue to follow Discussed Condition With Dr. Felipe Fishman Attending Statement end-stage renal disease, noncompliant. T left AV fistula malfunction being followed by dr Diaz surgery consulted of eval possible pd cath. We will be available for possible pd cath await Dr. Diaz recommendations for av fistula and decision of fistula vs PD cath will see peripherally over weekend, await US results and mapping Attestation The exam, history, and the medical decision-making described in the above note were completed with the assistance of the mid-level provider. I reviewed and agree with the findings presented. I attest that I had a [id number] encounter with the patient on the same day, and personally performed and documented my assessment and findings in the medical record. Nusrat Calderon Apr 28, 2017 17:51 Nii Wang MD Apr 29, 2017 11:33
[2017-04-28] MEDS: REMOVE OLD NICODERM (NICOTINE) PATCH T-DERMAL SCH (20:12)
[2017-04-28] MEDS: FAMOTIDINE 20 MG TAB PO SCH (20:12)
[2017-04-28] MEDS: buPROPion HCL 150 MG SUSTAINED RELEASE TAB PO SCH (20:12)
[2017-04-29] VITALS (7 sets, daily range): BP systolic 118–159; BP diastolic 60–73; PULSE 60–94; RESP 16–19; TEMP 96.6–98; O2SAT 96–100
[2017-04-29] MEDS: ACETAMINOPHEN/HYDROcodone 325 MG/5 MG TAB PO PRN (03:14)
[2017-04-29 08:30] LABS: AUTOMATED NEUTROPHIL # 7.3 TH/MM3 (1.8-7.7); BASOPHIL % 0.4 % (0.0-2.0); EOSINOPHIL # 0.3 TH/MM3 (0-0.4); EOSINOPHIL % 3.1 % (0.0-4.0); HEMO FLAGS DIFF FINAL; LYMPH % 16.3 % (9.0-44.0); LYMPHOCYTE # 1.6 TH/MM3 (1.0-4.8); MEAN CELL VOLUME 83.5 FL (80.0-100.0); MEAN CORPUSCULAR HEMOGLOBIN 26.9 PG (27.0-34.0); MEAN CORPUSCULAR HGB CONC 32.2 % (32.0-36.0); MONO % 7.6 % (0.0-8.0); NEUT % 72.6 % (16.0-70.0); PLATELET COUNT 293 TH/MM3 (150-450); RED BLOOD COUNT 2.87 MIL/MM3 (4.00-5.30); RED CELL DISTRIBUTION WIDTH 16.7 % (11.6-17.2); WHITE BLOOD COUNT 10.1 TH/MM3 (4.0-11.0)
[2017-04-29 08:32] LABS: RETIC % 2.6 % (0.4-3.0); REVIEW FLAG FINAL
[2017-04-29 09:35] LABS: ANION GAP 9 MEQ/L (5-15); BICARBONATE 25.3 MEQ/L (21.0-32.0); BLOOD UREA NITROGEN 38 MG/DL (7-18); CHLORIDE 104 MEQ/L (98-107); FERRITIN 43 NG/ML (8-252); FREE T3 1.93 PG/ML (2.18-3.98); FREE T4 0.91 NG/DL (0.76-1.46); GLOMERULAR FILTRATION RATE 9 ML/MIN (>89); HDL CHOLESTEROL 31.3 MG/DL (40.0-60.0); LDL CHOLESTEROL 91 MG/DL (0-99); POTASSIUM 3.1 MEQ/L (3.5-5.1); SODIUM (NA) 138 MEQ/L (136-145); TRANSFERRIN IRON PROFILE 187 MG/DL (200-360)
[2017-04-29 09:59] LABS: CALCIUM-PROTEIN CORRECTED 7.5 MG/DL (8.5-10.1)
[2017-04-29] MEDS: oxyCODONE/ACETAMINOPHEN 7.5 MG/325 MG TAB PO SCH ×3 (10:20→19:09)
[2017-04-29] MEDS: buPROPion HCL 150 MG SUSTAINED RELEASE TAB PO SCH ×2 (10:21→21:25)
[2017-04-29] MEDS: POTASSIUM PHOSPHATE MONOBASIC 500 MG TAB PO SCH (10:21)
[2017-04-29] MEDS: FAMOTIDINE 20 MG TAB PO SCH ×2 (10:21→21:25)
[2017-04-29] MEDS: NICOTINE 21 MG/24 HR PATCH T-DERMAL SCH (10:21)
[2017-04-29] MEDS: SODIUM CHLORIDE 0.9% FLUSH 10 ML FLUSH IV FLUSH SCH ×2 (10:29→21:25)
--- NOTE | 2017-04-29 10:37 | HHI.NPPN ---
Subjective Interval History Had dialysis yesterday. Needs potassium replacement. Objective Data Data 04/28/17 04/29/17 19:00 07:00 Intake Total 120 ml 480 ml Balance 120 ml 480 ml Intake Oral 120 ml 480 ml # Voids 2 3 # Bowel Movements 0 0 Vital Signs Date Time Temp Pulse Resp B/P Pulse Ox O2 Delivery O2 Flow Rate FiO2 04/29/17 08:00 97.1 72 17 126/60 99 04/29/17 04:00 97.6 72 17 118/65 97 04/29/17 00:00 98.0 94 16 154/73 98 04/28/17 19:00 97.9 90 16 121/60 97 04/28/17 17:41 98 04/28/17 16:35 18 04/28/17 16:00 98.2 81 18 144/72 96 04/28/17 15:41 18 04/28/17 12:00 98.0 71 18 113/58 100 -: 04/29/17 0651 04/29/17 0651 Physical Exam General Appearance: No Acute Distress Eyes Eye Exam: Pupils Equal Neck Neck Exam: Neck Supple Pulmonary Resp Exam: Clear Bilaterally, Breath Sounds Equal Cardiology CV Exam: Regular, Normal Sinus Rhythm Gastrointestinal/Abdomen GI Exam: Soft, Non-Tender Integumentary Skin Exam: Intact Extremeties Extremities Exam: No Edema Assessment/Plan Problem List: (1) ESRD (end stage renal disease) Plan: Had dialysis yesterday, she has been non compliant. Considering PD. (2) Uremia Plan: She agreed to do dialysis (3) Dialysis AV fistula malfunction Plan: Vascular surgery consulted (4) Leukocytosis Plan: improved. (5) Hypokalemia Plan: Malnutrition with low calcium and low protein (6) Hypocalcemia Plan: Likely due to secondary hyperparathyroidism (7) Hypertension Plan: Monitor BP. Anmol Webber MD Apr 29, 2017 10:36
[2017-04-29] MEDS ORDERED: POTASSIUM CHLORIDE 20 MEQ CONTROLLED RELEASE TAB PO ONE (10:45)
--- NOTE | 2017-04-29 11:29 | PD.VS.CON ---
History of Present Illness Chief Complaint: L arm pain, non-functioning access Consult Requested by: Dr. De La Vega, nephrology History of Present Illness 36 yo female with ESRD and h/o noncompliance. about 6 years ago she had a L radiocephalic (Eula) placed here at [facility]. She has not used this in over a year but not clear that she didn't need HD during that time. She was admitted with L UE pain and has a tunneled catheter placed in the R chest and is slated for PD catheter placement by general surgery early in the week. No prior access attempts except the above; RIGHT handed. Past/Family/Social History Past Medical History ESRD morbid obesity anemia hyperparathyroidism Past Surgical History L UE Access creation Family History NC Home Medications No Active Prescriptions or Reported Meds Coded Allergies: Tetracycline (Verified Allergy, Severe, Anaphylaxis, 12/24/15) Triaminic (Verified Allergy, Severe, Anaphylaxis, 12/24/15) Review of Systems Constitutional: DENIES: Chills, Night Sweats Eyes: DENIES: Vision loss, Double Vision Musculoskeletal: COMPLAINS OF: Joint pain, Muscle aches Physical Exam Vitals/I&O Date Time Temp Pulse Resp B/P Pulse Ox O2 Delivery O2 Flow Rate FiO2 04/29/17 08:00 97.1 72 17 126/60 99 04/29/17 04:00 97.6 72 17 118/65 97 04/29/17 00:00 98.0 94 16 154/73 98 04/28/17 19:00 97.9 90 16 121/60 97 04/28/17 17:41 98 04/28/17 16:35 18 04/28/17 16:00 98.2 81 18 144/72 96 04/28/17 15:41 18 04/28/17 12:00 98.0 71 18 113/58 100 04/29/17 04/29/17 04/29/17 07:00 15:00 23:00 Intake Total 480 ml Balance 480 ml Neuro: resting comfortably, no distress HEENT: NC/AT; poor dentition Neck: no JVD Heart: reg rate Lungs: no wheezing Abdomen: obese, NT Vascular: L UE with long-healed incisions tender mass L distal forearm + radial pulse distal to AVF 5/5 hand strength Laboratory Tests Test 04/29/17 06:51 White Blood Count 10.1 Red Blood Count 2.87 Hemoglobin 7.7 Hematocrit 24.0 Mean Corpuscular Volume 83.5 Mean Corpuscular Hemoglobin 26.9 Mean Corpuscular Hemoglobin 32.2 Concent Red Cell Distribution Width 16.7 Platelet Count 293 Mean Platelet Volume 6.8 Neutrophils (%) (Auto) 72.6 Lymphocytes (%) (Auto) 16.3 Monocytes (%) (Auto) 7.6 Eosinophils (%) (Auto) 3.1 Basophils (%) (Auto) 0.4 Neutrophils # (Auto) 7.3 Lymphocytes # (Auto) 1.6 Monocytes # (Auto) 0.8 Eosinophils # (Auto) 0.3 Basophils # (Auto) 0.0 CBC Comment DIFF FINAL Differential Comment Reticulocyte Count 2.6 Absolute Reticulocyte Count 77.1 Sodium Level 138 Potassium Level 3.1 Chloride Level 104 Carbon Dioxide Level 25.3 Anion Gap 9 Blood Urea Nitrogen 38 Creatinine 5.11 Estimat Glomerular Filtration 9 Rate Random Glucose 73 Calcium Level 7.3 Protein Corrected Calcium 7.5 Iron Level 15 Total Iron Binding Capacity 262 Percent Iron Saturation 5.7 Ferritin 43 Total Protein 6.8 Triglycerides Level 74 Cholesterol Level 137 LDL Cholesterol 91 HDL Cholesterol 31.3 Cholesterol/HDL Ratio 4.37 Vitamin B12 Level 694 Folate 3.5 Free Thyroxine 0.91 Free Triiodothyronine (T3) 1.93 pg/dL Thyroid Stimulating Hormone 2.920 3rd Gen Date/Time Procedure Status Source Growth 04/27/17 19:50 Urine Culture - Final Complete Urine Random Urine 50-100,000 CFU/ML MIXED GRAM POSITIVE... Last 48 hours Impressions Upper Extremity Ultrasound 04/28/17 0000 Signed Impressions: Service Date/Time: Friday, April 28, 2017 15:37 - CONCLUSION: Negative for deep or superficial thrombosis. Ritesh Resendiz MD FACR Upper Extremity Ultrasound 04/28/17 0000 Signed Impressions: Service Date/Time: Friday, April 28, 2017 16:03 - CONCLUSION: Upper extremity venous mapping as described above. Ritesh Resendiz MD FACR Catheter Placement X-Ray 04/28/17 0000 Signed Impressions: Service Date/Time: Friday, April 28, 2017 11:48 - CONCLUSION: Uncomplicated line placement as above. eRy Barrett Jr., MD Chest X-Ray 04/27/171936 Signed Impressions: Service Date/Time: April 19:45 - CONCLUSION: The lungs are clear. Rey Velasquez MD Assessment and Plan Plan I suspect that her pain is thrombophlebitis from a thrombosed AVF - no history of trauma or even access so pseudoaneurysm much less doubtful 1. Warm compresses and pain meds or anti-inflammatory medication as per renal 2. Will get duplex to r/o PSA 3. If pain persists, could have access excision; certainly if PSA, will need arterial repair Will follow Gualberto Cutler MD FACS RPVI consulting solution director [facility] at [facility] [phone] Gualberto Cutler MD Apr 29, 2017 11:29
--- NOTE | 2017-04-29 14:23 | HHI.PR ---
Subjective Remarks resting quietly arm feeling a bit better wellbutrin started Objective Vital Signs Date Time Temp Pulse Resp B/P Pulse Ox O2 Delivery O2 Flow Rate FiO2 04/29/17 12:00 96.6 88 18 159/73 98 04/29/17 08:00 97.1 72 17 126/60 99 04/29/17 04:00 97.6 72 17 118/65 97 04/29/17 00:00 98.0 94 16 154/73 98 04/28/17 19:00 97.9 90 16 121/60 97 04/28/17 17:41 98 04/28/17 16:35 18 04/28/17 16:00 98.2 81 18 144/72 96 04/28/17 15:41 18 I/O 04/28/17 04/28/17 04/28/17 04/29/17 04/29/17 04/29/17 07:00 15:00 23:00 07:00 15:00 23:00 Intake Total 480 ml 120 ml 480 ml Balance 480 ml 120 ml 480 ml Intake Oral 480 ml 120 ml 480 ml # Voids 0 2 3 # Bowel Movements 0 0 0 Result Diagram: 04/29/17 0651 04/29/17 0651 Imaging Last 72 hours Impressions Upper Extremity Ultrasound 04/28/17 0000 Signed Impressions: Service Date/Time: Friday, April 28, 2017 15:37 - CONCLUSION: Negative for deep or superficial thrombosis. Ritesh Resendiz MD FACR Upper Extremity Ultrasound 04/28/17 0000 Signed Impressions: Service Date/Time: Friday, April 28, 2017 16:03 - CONCLUSION: Upper extremity venous mapping as described above. Ritesh Resendiz MD FACR Catheter Placement X-Ray 04/28/17 0000 Signed Impressions: Service Date/Time: Friday, April 28, 2017 11:48 - CONCLUSION: Uncomplicated line placement as above. Rey Barrett Jr., MD Chest X-Ray 04/27/171936 Signed Impressions: Service Date/Time: April 19:45 - CONCLUSION: The lungs are clear. Rey Velasquez MD Objective Remarks GENERAL: Well-nourished, well-developed morbidly obese patient. SKIN: Warm and dry. HEAD: Normocephalic. EYES: No scleral icterus. No injection or drainage. NECK: Supple, trachea midline. No JVD or lymphadenopathy. CARDIOVASCULAR: Regular rate and rhythm without murmurs, gallops, or rubs. RESPIRATORY: Breath sounds equal bilaterally. No accessory muscle use. GASTROINTESTINAL: Abdomen soft, morbidly obese non-tender, nondistended. EXTREMITIES: No cyanosis, or edema. NEUROLOGICAL: Awake, alert, and oriented x 3. Non-focal. Medications and IVs Inpatient Medications Acetaminophen (Tylenol) 650 mg UNSCH PRN PO for headach, pain, temp > 101F Last administered on 04/28/17 14:41; Start 04/28/17 at 10:15 Acetaminophen/ Hydrocodone Bitart ([place] 5-325 Mg) 1 tab Q4H PRN PO PAIN 5-10 Last administered on 04/29/17 03:14; Start 04/27/17 at 23:45 Albumin Human (Albumin 25% Inj) 25 gm UNSCH PRN IV WITH DIALYSIS; Start at 10:15 Bupropion HCl (Wellbutrin Sr) 150 mg BID PO Last administered on 04/29/17 10:21 ; Start 04/28/17 at 21:00 Ceftriaxone Sodium/Sodium Chloride (Rocephin Inj/NS Inj) 100 ml @ 200 mls/hr ONCE ONCE IV Last administered on 04/27/17 21:02; Start 04/27/17 at 20:45; Stop 04/27/17 at 21:14; Status DC Clonidine (Catapres) 0.1 mg UNSCH PRN PO for BP > 180/100 X 2 readings; Start 04/28/17 at 10:15 Diphenhydramine HCl (Benadryl) 25 mg UNSCH PRN PO for hives/itching/anaphylaxis ; Start 04/28/17 at 10:15 Epoetin Anselmo (Epogen Inj) 4,000 units UNSCH PRN IV WITH DIALYSIS Last administered on 04/28/17 14:41; Start 04/28/17 at 10:15 Famotidine (Pepcid) 10 mg BID PO Last administered on 04/29/17 10:21; Start 04/28/17 at 21:00 Gelatin (Gelfoam 12 Mm/7 Mm Top) 1 foam UNSCH PRN TOP SEE LABEL COMMENTS; Start 04/28/17 at 10:15 Gentamicin Sulfate (Gentamicin (Dialysis) Inj) 20 mg UNSCH PRN IV WITH DIALYSIS Last administered on 04/28/17 14:41; Start 04/28/17 at 10:15 Heparin Sodium (Porcine) (Heparin Inj) UNSCH PRN IV FLUSH SEE PROTOCOL; Start 04/28/17 at 12:30 Heparin Sodium (Porcine) 8000 units 8,000 units UNSCH PRN IVF WITH DIALYSIS; Start 04/28/17 at 10:15 Mannitol (Mannitol Inj) 12.5 gm UNSCH PRN IV WITH DIALYSIS; Start 04/28/17 at 10 :15 Miscellaneous Information 1 HS T-DERMAL Last administered on 04/28/17 20:12; Start 04/28/17 at 21:00 Naloxone HCl (Narcan Inj) 0.4 mg UNSCH PRN IV SEE LABEL COMMENTS; Start at 21:45 Nicotine (Habitrol 21 Mg Patch.24 Hr) 1 patch DAILY T-DERMAL Last administered on 04/29/17 10:21; Start 04/28/17 at 09:00 Nitroglycerin (Nitrostat Sl) 0.4 mg UNSCH PRN SL CHEST PAIN; Start 04/28/17 at 10:15 Ondansetron HCl (Zofran Inj) 4 mg UNSCH PRN IV WITH DIALYSIS; Start 04/28/17 at 10:15 Oxycodone/ Acetaminophen (Percocet 7.5-325 Mg) 1 tab TID PO Last administered on 04/29/17 10:20; Start 04/29/17 at 09:00 Potassium Phosphate (K-Phos) 500 mg DAILY PO Last administered on 04/29/17 10: 21; Start 04/28/17 at 12:00; Stop 04/29/17 at 10:36; Status DC Potassium Chloride (KCl) 30 meq ONCE ONCE PO Last administered on 04/29/17 12: 40; Start 04/29/17 at 10:45; Stop 04/29/17 at 10:46; Status DC Sodium Chloride (NS 1000 ml Inj) 1,000 ml @ 0 mls/hr Q0M PRN IV WITH DIALYSIS; Start 04/28/17 at 10:06 Sodium Chloride (NS Flush) UNSCH PRN IVF SEE PROTOCOL; Start 04/28/17 at 12:30 Assessment and Plan Problem List: (1) ESRD (end stage renal disease) Status: Acute Plan: peritoneal dialysis planned (2) Anemia Status: Acute Assessment and Plan av shunt failure will proceed with PD Discussed Condition With mother and patient Physician Attestation Reported Meds & Active Scripts Active No Active Prescriptions or Reported Medications Dimas Solorzano DO Apr 29, 2017 14:23
[2017-04-29 14:56] LABS: HEMOGLOBIN A1a 1.1 %; HEMOGLOBIN A1b 2.4 %; HEMOGLOBIN Ao 82.1 %; HEMOGLOBIN LA1C 3.4 %; HEMOGLOBIN P3 6.3 %
--- NOTE | 2017-04-29 18:31 | RADRPT ---
EXAM DATE/TIME: 04/29/2017 17:36 [place] COMPARISON: No previous studies available for comparison. INDICATIONS : Left arm arteriovenous fistula failure. MEDICAL HISTORY : Hypercholesterolemia. Hypertension. Gastroesophageal reflux disease. Asthma. Renal failure. Anxiety . Diabetes. Joint pain. SURGICAL HISTORY : ORIF right humerus. Left forearm fistula. ENCOUNTER: Initial ACUITY: 1 week PAIN SCORE: 10/10 LOCATION: Left arm. AREA EVALUATED: Left forearm/wrist. FINDINGS: There is a arteriovenous fistula in the left forearm with fairly extensive occlusive thrombus within the fistula. CONCLUSION: 1. Occlusive thrombus within left forearm fistula. Valente Soto MD on April 29, 2017 at 18:29 Board Certified Radiologist. This report was verified electronically.
[2017-04-29 19:37] LABS: BICARBONATE 23.8 MEQ/L (21.0-32.0); POTASSIUM 3.4 MEQ/L (3.5-5.1)
[2017-04-29 20:04] LABS: CALCIUM-PROTEIN CORRECTED 7.4 MG/DL (8.5-10.1)
[2017-04-29] MEDS: REMOVE OLD NICODERM (NICOTINE) PATCH T-DERMAL SCH (21:00)
[2017-04-29] MEDS: ACETAMINOPHEN 325 MG TAB PO PRN (21:24)
[2017-04-30] MEDS: ACETAMINOPHEN/HYDROcodone 325 MG/5 MG TAB PO PRN (04:27)
[2017-04-30 07:48] VITALS: BP 132/67; PULSE 75; RESP 18; TEMP 97; O2SAT 99
[2017-04-30 08:30] LABS: AUTOMATED NEUTROPHIL # 8.5 TH/MM3 (1.8-7.7); BASOPHIL # 0.1 TH/MM3 (0-0.2); BASOPHIL % 0.5 % (0.0-2.0); EOSINOPHIL # 0.3 TH/MM3 (0-0.4); EOSINOPHIL % 2.7 % (0.0-4.0); HEMATOCRIT 24.2 % (35.0-46.0); HEMO FLAGS DIFF FINAL; LYMPH % 13.5 % (9.0-44.0); LYMPHOCYTE # 1.5 TH/MM3 (1.0-4.8); MEAN CORPUSCULAR HEMOGLOBIN 26.2 PG (27.0-34.0); MEAN CORPUSCULAR HGB CONC 30.8 % (32.0-36.0); MONO % 7.7 % (0.0-8.0); NEUT % 75.6 % (16.0-70.0); PLATELET COUNT 287 TH/MM3 (150-450); RED BLOOD COUNT 2.84 MIL/MM3 (4.00-5.30); RED CELL DISTRIBUTION WIDTH 17.4 % (11.6-17.2); WHITE BLOOD COUNT 11.3 TH/MM3 (4.0-11.0)
[2017-04-30 08:51] LABS: BICARBONATE 24.4 MEQ/L (21.0-32.0); POTASSIUM 3.4 MEQ/L (3.5-5.1)
--- NOTE | 2017-04-30 08:59 | HHI.NPPN ---
Subjective Interval History had dialysis Monday. Next dialysis is tomorrow. Objective Data Data 04/29/17 04/30/17 18:59 06:59 Intake Total 960 ml 1440 ml Balance 960 ml 1440 ml Intake Oral 960 ml 1440 ml # Voids 3 3 # Bowel Movements 1 0 Vital Signs Date Time Temp Pulse Resp B/P Pulse Ox O2 Delivery O2 Flow Rate FiO2 04/29/17 23:21 97.8 78 19 141/71 98 04/29/17 19:42 97.4 60 19 138/66 96 04/29/17 16:00 97.7 83 18 134/70 100 04/29/17 12:00 96.6 88 18 159/73 98 -: 04/30/17 0733 04/30/17 0733 Physical Exam General Appearance: No Acute Distress Eyes Eye Exam: Pupils Equal Neck Neck Exam: Neck Supple Pulmonary Resp Exam: Clear Bilaterally, Breath Sounds Equal Cardiology CV Exam: Regular, Normal Sinus Rhythm Gastrointestinal/Abdomen GI Exam: Soft, Non-Tender Integumentary Skin Exam: Intact Extremeties Extremities Exam: No Edema Assessment/Plan Problem List: (1) ESRD (end stage renal disease) Plan: Had dialysis yesterday, she has been non compliant. Considering PD. Patient has hypocalcemia, secondary hyperparathyroidism. I have started Vitamin D3 and Calcitriol. (2) Uremia Plan: She agreed to do dialysis (3) Dialysis AV fistula malfunction Plan: Vascular surgery consulted (4) Leukocytosis Plan: improved. (5) Hypokalemia Plan: Malnutrition with low calcium and low protein (6) Hypocalcemia Plan: Likely due to secondary hyperparathyroidism. See above. (7) Hypertension Plan: Monitor BP. Anmol Webber MD Apr 30, 2017 08:58
[2017-04-30 09:12] LABS: CALCIUM-PROTEIN CORRECTED 7.4 MG/DL (8.5-10.1)
[2017-04-30] MEDS: oxyCODONE/ACETAMINOPHEN 7.5 MG/325 MG TAB PO SCH ×3 (09:31→18:02)
[2017-04-30] MEDS: buPROPion HCL 150 MG SUSTAINED RELEASE TAB PO SCH ×2 (09:31→20:32)
[2017-04-30] MEDS: SODIUM CHLORIDE 0.9% FLUSH 10 ML FLUSH IV FLUSH SCH ×2 (09:32→20:32)
[2017-04-30] MEDS: FAMOTIDINE 20 MG TAB PO SCH ×2 (09:32→20:32)
[2017-04-30] MEDS: CHOLECALCIFEROL (VIT D3) 1000 UNIT TAB PO SCH (09:32)
[2017-04-30] MEDS: NICOTINE 21 MG/24 HR PATCH T-DERMAL SCH (09:32)
[2017-04-30 11:55] VITALS: BP 132/72; PULSE 75; RESP 18; TEMP 97.2; O2SAT 100
--- NOTE | 2017-04-30 11:57 | PD.VS.PN ---
Subjective Subjective/Hospital Course Pt with persistent pain and erythema at old access site in L UE; U/S consistent with thrombophlebitis. Pt wants access excised Objective Vitals/I&O Date Time Temp Pulse Resp B/P Pulse Ox O2 Delivery O2 Flow Rate FiO2 04/30/17 07:48 97.0 75 18 132/67 99 04/29/17 23:21 97.8 78 19 141/71 98 04/29/17 19:42 97.4 60 19 138/66 96 04/29/17 16:00 97.7 83 18 134/70 100 04/29/17 12:00 96.6 88 18 159/73 98 04/30/17 04/30/17 04/30/17 07:00 15:00 23:00 Intake Total 720 ml Balance 720 ml Physical Exam L UE with erythema and tenderness at RC location Laboratory Laboratory Tests Test 04/29/17 04/30/17 18:07 07:33 Sodium Level 136 138 Potassium Level 3.4 3.4 Chloride Level 103 105 Carbon Dioxide Level 23.8 24.4 Anion Gap 9 9 Blood Urea Nitrogen 41 46 Creatinine 5.10 5.43 Estimat Glomerular Filtration 9 9 Rate Random Glucose 91 94 Calcium Level 7.4 7.3 Protein Corrected Calcium 7.4 7.4 Total Protein 7.3 6.9 White Blood Count 11.3 Red Blood Count 2.84 Hemoglobin 7.4 Hematocrit 24.2 Mean Corpuscular Volume 85.0 Mean Corpuscular Hemoglobin 26.2 Mean Corpuscular Hemoglobin 30.8 Concent Red Cell Distribution Width 17.4 Platelet Count 287 Mean Platelet Volume 6.7 Neutrophils (%) (Auto) 75.6 Lymphocytes (%) (Auto) 13.5 Monocytes (%) (Auto) 7.7 Eosinophils (%) (Auto) 2.7 Basophils (%) (Auto) 0.5 Neutrophils # (Auto) 8.5 Lymphocytes # (Auto) 1.5 Monocytes # (Auto) 0.9 Eosinophils # (Auto) 0.3 Basophils # (Auto) 0.1 CBC Comment DIFF FINAL Differential Comment Date/Time Procedure Status Source Growth 04/27/17 19:50 Urine Culture - Final Complete Urine Random Urine 50-100,000 CFU/ML MIXED GRAM POSITIVE... Imaging Last 48 hours Impressions Upper Extremity Ultrasound 04/29/17 0000 Signed Impressions: Service Date/Time: Saturday, April 29, 2017 17:36 - CONCLUSION: 1. Occlusive thrombus within left forearm fistula. Valente Soto MD Assessment and Plan Plan Thrombophlebitis from acutely occluded L radiocephalic AVF Could be managed medically as it has been but persistent discomfort after several days without significant improvement Discussed with the patient and her mother about access excision. Will offer Monday UNLESS the patient is NOT getting PD catheter Monday in which case will perform access excision Monday in afternoon. Gualberto Cutler MD FACS RPVI gill box fixer [facility] - Heart and Vascular Surgery at [facility] [phone] Gualberto Cutler MD Apr 30, 2017 11:57
[2017-04-30] MEDS: CALCITRIOL 0.25 MCG CAP PO SCH (13:13)
[2017-04-30] MEDS: ONDANSETRON HCL 4 MG/2 ML VIAL IV PRN (13:14)
--- NOTE | 2017-04-30 14:46 | HHI.PR ---
Subjective Remarks resting quietly no new co Objective Vital Signs Date Time Temp Pulse Resp B/P Pulse Ox O2 Delivery O2 Flow Rate FiO2 04/30/17 11:55 97.2 75 18 132/72 100 04/30/17 07:48 97.0 75 18 132/67 99 04/29/17 23:21 97.8 78 19 141/71 98 04/29/17 19:42 97.4 60 19 138/66 96 04/29/17 16:00 97.7 83 18 134/70 100 I/O 04/29/17 04/29/17 04/29/17 04/30/17 04/30/17 04/30/17 07:00 15:00 23:00 07:00 15:00 23:00 Intake Total 480 ml 960 ml 720 ml 720 ml Balance 480 ml 960 ml 720 ml 720 ml Intake Oral 480 ml 960 ml 720 ml 720 ml # Voids 3 3 2 1 # Bowel Movements 0 1 0 0 Result Diagram: 04/30/1733 04/30/17732 Objective Remarks GENERAL: Well-nourished, well-developed morbidly obese patient. SKIN: Warm and dry. HEAD: Normocephalic. EYES: No scleral icterus. No injection or drainage. NECK: Supple, trachea midline. No JVD or lymphadenopathy. CARDIOVASCULAR: Regular rate and rhythm without murmurs, gallops, or rubs. RESPIRATORY: Breath sounds equal bilaterally. No accessory muscle use. GASTROINTESTINAL: Abdomen soft, morbidly obese non-tender, nondistended. EXTREMITIES: No cyanosis, or edema. NEUROLOGICAL: Awake, alert, and oriented x 3. Non-focal. Medications and IVs Inpatient Medications Acetaminophen (Tylenol) 650 mg UNSCH PRN PO for headach, pain, temp > 101F Last administered on 04/29/17 21:24; Start 04/28/17 at 10:15 Acetaminophen/ Hydrocodone Bitart ([place] 5-325 Mg) 1 tab Q4H PRN PO PAIN 5-10 Last administered on 04/30/17 04:27; Start 04/27/17 at 23:45 Albumin Human (Albumin 25% Inj) 25 gm UNSCH PRN IV WITH DIALYSIS; Start at 10:15 Bupropion HCl (Wellbutrin Sr) 150 mg BID PO Last administered on 04/30/17 09:31 ; Start 04/28/17 at 21:00 Calcitriol (Rocaltrol) 0.25 mcg DAILY PO Last administered on 04/30/17 13:13; Start 04/30/17 at 10:00 Ceftriaxone Sodium/Sodium Chloride (Rocephin Inj/NS Inj) 100 ml @ 200 mls/hr ONCE ONCE IV Last administered on 04/27/17 21:02; Start 04/27/17 at 20:45; Stop 04/27/17 at 21:14; Status DC Cholecalciferol (Vitamin D3) 1,000 units DAILY PO Last administered on 09:32; Start 04/30/17 at 10:00 Clonidine (Catapres) 0.1 mg UNSCH PRN PO for BP > 180/100 X 2 readings; Start 04/28/17 at 10:15 Diphenhydramine HCl (Benadryl) 25 mg UNSCH PRN PO for hives/itching/anaphylaxis ; Start 04/28/17 at 10:15 Epoetin Anselmo (Epogen Inj) 4,000 units UNSCH PRN IV WITH DIALYSIS Last administered on 04/28/17 14:41; Start 04/28/17 at 10:15 Famotidine (Pepcid) 10 mg BID PO Last administered on 04/30/17 09:32; Start 04/28/17 at 21:00 Gelatin (Gelfoam 12 Mm/7 Mm Top) 1 foam UNSCH PRN TOP SEE LABEL COMMENTS; Start 04/28/17 at 10:15 Gentamicin Sulfate (Gentamicin (Dialysis) Inj) 20 mg UNSCH PRN IV WITH DIALYSIS Last administered on 04/28/17 14:41; Start 04/28/17 at 10:15 Heparin Sodium (Porcine) (Heparin Inj) UNSCH PRN IV FLUSH SEE PROTOCOL; Start 04/28/17 at 12:30 Heparin Sodium (Porcine) 8000 units 8,000 units UNSCH PRN IVF WITH DIALYSIS; Start 04/28/17 at 10:15 Mannitol (Mannitol Inj) 12.5 gm UNSCH PRN IV WITH DIALYSIS; Start 04/28/17 at 10 :15 Miscellaneous Information 1 HS T-DERMAL Last administered on 04/29/17 21:00; Start 04/28/17 at 21:00 Naloxone HCl (Narcan Inj) 0.4 mg UNSCH PRN IV SEE LABEL COMMENTS; Start at 21:45 Nicotine (Habitrol 21 Mg Patch.24 Hr) 1 patch DAILY T-DERMAL Last administered on 04/30/17 09:32; Start 04/28/17 at 09:00 Nitroglycerin (Nitrostat Sl) 0.4 mg UNSCH PRN SL CHEST PAIN; Start 04/28/17 at 10:15 Ondansetron HCl (Zofran Inj) 4 mg UNSCH PRN IV WITH DIALYSIS Last administered on 04/30/17 13:14; Start 04/28/17 at 10:15 Oxycodone/ Acetaminophen (Percocet 7.5-325 Mg) 1 tab TID PO Last administered on 04/30/17 13:13; Start 04/29/17 at 09:00 Potassium Phosphate (K-Phos) 500 mg DAILY PO Last administered on 04/29/17 10: 21; Start 04/28/17 at 12:00; Stop 04/29/17 at 10:36; Status DC Potassium Chloride (KCl) 30 meq ONCE ONCE PO Last administered on 04/29/17 12: 40; Start 04/29/17 at 10:45; Stop 04/29/17 at 10:46; Status DC Sodium Chloride (NS 1000 ml Inj) 1,000 ml @ 0 mls/hr Q0M PRN IV WITH DIALYSIS; Start 04/28/17 at 10:06 Sodium Chloride (NS Flush) UNSCH PRN IVF SEE PROTOCOL; Start 04/28/17 at 12:30 Assessment and Plan Problem List: (1) ESRD (end stage renal disease) Status: Acute Plan: peritoneal dialysis planned (2) Anemia Status: Acute Assessment and Plan av shunt failure will proceed with PD anemia hgb 7.4 will follow closely Discussed Condition With patient Dimas SolorzanoJaun WOOD Apr 30, 2017 14:46
[2017-04-30 15:55] VITALS: BP 146/79; PULSE 84; RESP 18; TEMP 97.2; O2SAT 100
[2017-04-30 20:56] VITALS: BP 129/79; PULSE 83; RESP 18; TEMP 98.6; O2SAT 99
[2017-04-30] MEDS: REMOVE OLD NICODERM (NICOTINE) PATCH T-DERMAL SCH (21:00)
[2017-05-01 00:54] VITALS: BP 130/69; PULSE 79; RESP 18; TEMP 98.1; O2SAT 98
[2017-05-01] MEDS: ACETAMINOPHEN 325 MG TAB PO PRN (05:30)
--- NOTE | 2017-05-01 06:58 | PD.VS.PN ---
Subjective Subjective/Hospital Course Pt with persistent pain and erythema at old access site in L UE; U/S consistent with thrombophlebitis. No changes over night. For comfort relief, offered access excision later today Objective Vitals/I&O Date Time Temp Pulse Resp B/P Pulse Ox O2 Delivery O2 Flow Rate FiO2 05/01/17 00:54 98.1 79 18 130/69 98 04/30/17 20:56 98.6 83 18 129/79 99 04/30/17 15:55 97.2 84 18 146/79 100 04/30/17 11:55 97.2 75 18 132/72 100 04/30/17 07:48 97.0 75 18 132/67 99 Physical Exam L UE with erythema and induration, swelling over RC AVF Laboratory Laboratory Tests Test 04/30/17 07:33 White Blood Count 11.3 Red Blood Count 2.84 Hemoglobin 7.4 Hematocrit 24.2 Mean Corpuscular Volume 85.0 Mean Corpuscular Hemoglobin 26.2 Mean Corpuscular Hemoglobin 30.8 Concent Red Cell Distribution Width 17.4 Platelet Count 287 Mean Platelet Volume 6.7 Neutrophils (%) (Auto) 75.6 Lymphocytes (%) (Auto) 13.5 Monocytes (%) (Auto) 7.7 Eosinophils (%) (Auto) 2.7 Basophils (%) (Auto) 0.5 Neutrophils # (Auto) 8.5 Lymphocytes # (Auto) 1.5 Monocytes # (Auto) 0.9 Eosinophils # (Auto) 0.3 Basophils # (Auto) 0.1 CBC Comment DIFF FINAL Differential Comment Sodium Level 138 Potassium Level 3.4 Chloride Level 105 Carbon Dioxide Level 24.4 Anion Gap 9 Blood Urea Nitrogen 46 Creatinine 5.43 Estimat Glomerular Filtration 9 Rate Random Glucose 94 Calcium Level 7.3 Protein Corrected Calcium 7.4 Total Protein 6.9 Date/Time Procedure Status Source Growth 04/27/17 19:50 Urine Culture - Final Complete Urine Random Urine 50-100,000 CFU/ML MIXED GRAM POSITIVE... Assessment and Plan Plan Thrombophlebitis from acutely occluded L radiocephalic AVF Plan for access excision later today. All risks/benefits discussed with patient. Gualberto Cutler MD FACS RPVI product safety administrator [facility] - Heart and Vascular Surgery at [facility] [phone] Gualberto Cutler MD May 01, 2017 06:58
[2017-05-01 08:00] VITALS: BP 114/61; PULSE 69; RESP 16; TEMP 97; O2SAT 98
[2017-05-01 08:34] LABS: AUTOMATED NEUTROPHIL # 7.6 TH/MM3 (1.8-7.7); BASOPHIL # 0.1 TH/MM3 (0-0.2); BASOPHIL % 1.2 % (0.0-2.0); EOSINOPHIL # 0.3 TH/MM3 (0-0.4); HEMO FLAGS DIFF FINAL; LYMPH % 15.7 % (9.0-44.0); LYMPHOCYTE # 1.7 TH/MM3 (1.0-4.8); MEAN CELL VOLUME 84.7 FL (80.0-100.0); MEAN CORPUSCULAR HEMOGLOBIN 26.5 PG (27.0-34.0); MEAN CORPUSCULAR HGB CONC 31.3 % (32.0-36.0); MONO % 7.8 % (0.0-8.0); NEUT % 72.3 % (16.0-70.0); PLATELET COUNT 302 TH/MM3 (150-450); RED BLOOD COUNT 2.83 MIL/MM3 (4.00-5.30); RED CELL DISTRIBUTION WIDTH 17.4 % (11.6-17.2); WHITE BLOOD COUNT 10.5 TH/MM3 (4.0-11.0)
[2017-05-01] MEDS: CALCITRIOL 0.25 MCG CAP PO SCH (09:00)
[2017-05-01] MEDS: oxyCODONE/ACETAMINOPHEN 7.5 MG/325 MG TAB PO SCH ×3 (09:00→17:19)
[2017-05-01] MEDS: CHOLECALCIFEROL (VIT D3) 1000 UNIT TAB PO SCH (09:00)
[2017-05-01] MEDS: SODIUM CHLORIDE 0.9% FLUSH 10 ML FLUSH IV FLUSH SCH ×2 (09:00→21:23)
[2017-05-01] MEDS: NICOTINE 21 MG/24 HR PATCH T-DERMAL SCH (09:00)
[2017-05-01] MEDS: FAMOTIDINE 20 MG TAB PO SCH ×2 (09:00→21:23)
[2017-05-01] MEDS: buPROPion HCL 150 MG SUSTAINED RELEASE TAB PO SCH ×2 (09:00→21:22)
[2017-05-01 09:21] LABS: POTASSIUM 3.5 MEQ/L (3.5-5.1)
[2017-05-01] MEDS: HEPARIN SODIUM - IV 10,000 UNITS/10 ML VIAL PRN (09:43)
[2017-05-01] MEDS: EPOETIN ALFA 10,000 UNITS/ML VIAL IV PRN (09:44)
[2017-05-01] MEDS: GENTAMICIN SULFATE (DIALYSIS USE ONLY) 20 MG/2 ML VIAL IV PRN (09:44)
[2017-05-01] MEDS ORDERED: PROPOFOL 200 MG/20 ML AMP IV ONE (12:00)
--- NOTE | 2017-05-01 12:14 | HHI.PR ---
Subjective Remarks Patient OOB sitting in chair. No CP or SOB Objective Vital Signs Date Time Temp Pulse Resp B/P Pulse Ox O2 Delivery O2 Flow Rate FiO2 05/01/17 08:00 97.0 69 16 114/61 98 05/01/17 00:54 98.1 79 18 130/69 98 04/30/17 20:56 98.6 83 18 129/79 99 04/30/17 15:55 97.2 84 18 146/79 100 I/O 04/30/17 04/30/17 04/30/17 05/01/17 05/01/17 05/01/17 06:59 14:59 22:59 06:59 14:59 22:59 Intake Total 720 ml 960 ml 240 ml 0 ml Balance 720 ml 960 ml 240 ml 0 ml Intake Oral 720 ml 960 ml 240 ml 0 ml # Voids 1 4 0 2 # Bowel Movements 0 0 0 0 Result Diagram: 05/01/1782105/01/17 0822 Imaging Last 72 hours Impressions Upper Extremity Ultrasound 04/29/17 0000 Signed Impressions: Service Date/Time: Saturday, April 29, 2017 17:36 - CONCLUSION: 1. Occlusive thrombus within left forearm fistula. Valente Soto MD Other Results GENERAL: Alert and cooperative SKIN: Warm and dry. Vas cath right chest HEAD: Normocephalic. EYES: No scleral icterus. No injection or drainage. NECK: Supple, trachea midline. No JVD or lymphadenopathy. CARDIOVASCULAR: Regular rate and rhythm without murmurs, gallops, or rubs. RESPIRATORY: Breath sounds equal bilaterally. No accessory muscle use. GASTROINTESTINAL: Abdomen soft, non-tender, nondistended. MUSCULOSKELETAL: No cyanosis, or edema. BACK: Nontender without obvious deformity. No CVA tenderness. Medications and IVs Current Medications Medications (Trade) Dose Ordered Sig/Harjit Route Start Time Stop Time Status Last Admin (NS Flush) 2 ml UNSCH PRN IV FLUSH 04/27/17 21:45 (NS Flush) 2 ml BID IV FLUSH 04/28/17 09:00 04/30/17 20:32 (Tylenol) 650 mg Q4H PRN PO 04/27/17 21:45 (Narcan Inj) 0.4 mg UNSCH PRN IV 04/27/17 21:45 (Habitrol 21 Mg Patch.24 Hr) 1 patch DAILY T-DERMAL 04/28/17 09:00 04/30/17 09:32 Miscellaneous Information 1 HS T-DERMAL 04/28/17 21:00 04/30/17 21:00 Acetaminophen/ Hydrocodone Bitart 1 tab 1 tab Q4H PRN PO 04/27/17 23:45 04/30/17 04:27 (NS 1000 ml Inj) 1,000 ml @ 0 mls/hr Q0M PRN IV 04/28/17 10:06 05/01/17 09:44 Heparin Sodium (Porcine) 8000 units 8,000 units UNSCH PRN IVF 04/28/17 10:15 Sodium Chloride 1,000 ml @ 200 mls/hr Q5H PRN IV 04/28/17 10:06 (NS 1000 ml Inj) 1,000 ml @ 0 mls/hr Q0M PRN IV 04/28/17 10:06 (Mannitol Inj) 12.5 gm UNSCH PRN IV 04/28/17 10:15 (Albumin 25% Inj) 25 gm UNSCH PRN IV 04/28/17 10:15 (NS Flush) 5 ml UNSCH PRN IV FLUSH 04/28/17 10:15 (Heparin Inj) UNSCH PRN .XX 04/28/17 10:15 05/01/17 09:43 (Gentamicin (Dialysis) Inj) 20 mg UNSCH PRN IV 04/28/17 10:15 05/01/17 09:44 (Zofran Inj) 4 mg UNSCH PRN IV 04/28/17 10:15 04/30/17 13:14 (Tylenol) 650 mg UNSCH PRN PO 04/28/17 10:15 05/01/17 05:30 (Benadryl) 25 mg UNSCH PRN PO 04/28/17 10:15 (Nitrostat Sl) 0.4 mg UNSCH PRN SL 04/28/17 10:15 (Catapres) 0.1 mg UNSCH PRN PO 04/28/17 10:15 (Epogen Inj) 4,000 units UNSCH PRN IV 04/28/17 10:15 05/01/17 09:44 (Gelfoam 12 Mm/7 Mm Top) 1 foam UNSCH PRN TOP 04/28/17 10:15 (Pepcid) 10 mg BID PO 04/28/17 21:00 04/30/17 20:32 (NS Flush) UNSCH PRN IVF 04/28/17 12:30 (Heparin Inj) UNSCH PRN IV FLUSH 04/28/17 12:30 (Wellbutrin Sr) 150 mg BID PO 04/28/17 21:00 04/30/17 20:32 (Percocet 7.5-325 Mg) 1 tab TID PO 04/29/17 09:00 04/30/17 18:02 (Vitamin D3) 1,000 units DAILY PO 04/30/17 10:00 04/30/17 09:32 (Rocaltrol) 0.25 mcg DAILY PO 04/30/17 10:00 04/30/17 13:13 Assessment and Plan Problem List: (1) Dialysis AV fistula malfunction Status: Acute Plan: Left arm fistula site with swelling. Vascular surgery consulted US consistent with thrombophlebitis and plan for excision later today per surgery. (2) ESRD (end stage renal disease) Status: Acute Plan: Patient with right jugular vas cath. Dialysis scheduled for today. Nephrology consulted. Plan for peritoneal dialysis in future. (3) Leukocytosis Status: Acute Plan: Has received one dose of Rocephin. WBC improved at 11.3 Urine cultures probable contaminate (4) Hypocalcemia Status: Acute Plan: Patient has hypocalcemia, secondary hyperparathyroidism. I have started Vitamin D3 and Calcitriol. (5) Hypokalemia Status: Acute Plan: Potassium 3.5 (6) Anemia Status: Acute Plan: HGB 7.4 Anemia panel ordered showing iron deficiency will order Venofer Assessment and Plan Assessment and plan discussed with Dr. Solorzano Discussed Condition With Nursing Discharge Planning Home Physician Attestation I and the MOTOR POOL CLERK have both examined this patient and reviewed this note and I agree with these findings and plan of care. Jennifer Calvo [facility] May 01, 2017 12:14
[2017-05-01] MEDS ORDERED: SODIUM CHLORID 0.9% 500 ML IV PRN (13:45)
[2017-05-01] MEDS ORDERED: LACTATED RINGER'S 1000 ML IV PRN (13:45)
[2017-05-01 13:50] VITALS: BP 131/70; PULSE 80; RESP 20; TEMP 97.5; O2SAT 97
[2017-05-01] MEDS ORDERED: POVIDONE IODINE 5% (ANTISEPSIS KIT) 4 APPLICATIONS EACH NARE PRN (14:00)
[2017-05-01] MEDS ORDERED: INSULIN HUMAN REGULAR 1,000 UNITS/10 ML VIAL SQ PRN (14:00)
[2017-05-01] MEDS ORDERED: CHLORHEXIDINE GLUCONATE 2 % 1 PACK (2 CLOTHS) TOPICAL PRN (14:00)
[2017-05-01] MEDS ORDERED: METOPROLOL TARTRATE 25 MG TAB PO PRN (14:00)
[2017-05-01] MEDS ORDERED: KETAMINE HCL 500 MG/5 ML VIAL ONE (14:34)
[2017-05-01] MEDS ORDERED: HEPARIN SODIUM - IV 10,000 UNITS/10 ML VIAL ONE (14:54)
[2017-05-01] MEDS ORDERED: BUPIVACAINE HCL PF 0.5% 30 ML VIAL ONE (14:55)
[2017-05-01] MEDS ORDERED: THROMBIN (TOPICAL) 20,000 UNIT SPRAY KIT ONE (14:55)
[2017-05-01] MEDS ORDERED: PROTAMINE SULFATE 50 MG/5 ML VIAL ONE (14:55)
[2017-05-01] MEDS ORDERED: VANCOMYCIN HCL 1000 MG VIAL ONE (14:55)
[2017-05-01] MEDS ORDERED: LIDOCAINE HCL 1% 30 ML VIAL ONE (15:28)
--- NOTE | 2017-05-01 15:34 | HHI.NPPN ---
Subjective General Problems: Anemia, Edema, Hypertension Renal Failure: End Stage Renal Disease History of Present Illness 36-year-old white female with morbid obesity, asthma, hypertension, ESRD who is noncompliant with hemodialysis and stop coming to the dialysis center last year , she had admission in the hospital in November/December 2015 at that time she was on hemodialysis and afterward placed in the clinic and she refused to show up she was seen in the clinic one time and promised to resume her dialysis but she never did, she developed AV fistula pain in the left arm with the swelling near the arterial site. Additional Remarks Patient seen during HD in AM, has mild pain at AVF site, no SOB. Objective Data Data 04/30/17 05/01/17 19:00 07:00 Intake Total 960 ml 240 ml Balance 960 ml 240 ml Intake Oral 960 ml 240 ml # Voids 4 2 # Bowel Movements 0 0 Vital Signs Date Time Temp Pulse Resp B/P Pulse Ox O2 Delivery O2 Flow Rate FiO2 05/01/17 13:50 97.5 80 20 131/70 97 05/01/17 08:00 97.0 69 16 114/61 98 05/01/17 00:54 98.1 79 18 130/69 98 04/30/17 20:56 98.6 83 18 129/79 99 04/30/17 15:55 97.2 84 18 146/79 100 -: 05/01/17 0822 05/01/17 0822 Physical Exam General Appearance: No Acute Distress, Comfortable Eyes Eye Exam: Pupils Equal Neck Neck Exam: Neck Supple Pulmonary Resp Exam: Breath Sounds Equal, No Distress, Rhonchi, Decreased Bases Cardiology CV Exam: Regular, Normal Sinus Rhythm Gastrointestinal/Abdomen GI Exam: Soft, Non-Tender, Bowel Sounds Present, Non-Distended Integumentary Skin Exam: Intact Extremeties Extremities Exam: Trace Edema Neurologic Neuro Exam: Alert, Awake, Oriented Psychiatric Psych Exam: Appropriate Responses Assessment/Plan Problem List: (1) ESRD (end stage renal disease) Plan: she has been non compliant. Considering PD. Patient has hypocalcemia, secondary hyperparathyroidism. started on Vitamin D3 and Calcitriol. HD today, for AVF excision and will need PD catheter, possibly tomorrow. (2) Uremia Plan: She agreed to do dialysis (3) Dialysis AV fistula malfunction Plan: Vascular surgery consulted (4) Leukocytosis Plan: improved. (5) Hypokalemia Plan: Malnutrition with low calcium and low protein (6) Hypocalcemia Plan: Likely due to secondary hyperparathyroidism. See above. (7) Hypertension Plan: Monitor BP. Problem Qualifiers (1) Hypertension: Qualified Code: I10 - Essential hypertension Timo Lugo MD May 01, 2017 15:34
--- NOTE | 2017-05-01 16:18 | HHI.PR ---
Immediate Post Op Note Procedure Date: May 01, 2017 Pre Op Diagnosis: Thrombophlebitis L UE AVF Post Op Diagnosis: Thrombophlebitis L UE AVF Surgeon: Gualberto Cutler Car Head Liner Installer(s): none Procedure: Access excision of L UE Findings: thrombosis of AVF and no infection Additional Information: Palpable radial pulse at conclusion Complications: none Specimen(s) removed: none for pathology Estimated blood loss: 10mL Anesthesia: Local Drains: None Fluids: 100mL IVF Patient to: PACU Patient Condition: Good Date/Time of Procedure: SEE SURGICAL CARE RECORD Gualberto Cutler MD May 01, 2017 16:18
[2017-05-01] MEDS ORDERED: MIDAZOLAM HCL 2 MG/2 ML VIAL ONE (16:34)
[2017-05-01] MEDS ORDERED: DO NOT ADM ANY ANTICOAGULANT DRUGS PRN (16:45)
[2017-05-01 17:45] VITALS: BP 122/64; PULSE 75; RESP 16; TEMP 98.4; O2SAT 98
[2017-05-01 19:39] VITALS: BP 122/58; PULSE 83; RESP 19; TEMP 97.2; O2SAT 98
[2017-05-01] MEDS: REMOVE OLD NICODERM (NICOTINE) PATCH T-DERMAL SCH (21:00)
[2017-05-01] MEDS: oxyCODONE/ACETAMINOPHEN 10 MG/325 MG TAB PO SCH (21:22)
[2017-05-01 23:10] VITALS: BP 124/63; PULSE 82; RESP 19; TEMP 97.3; O2SAT 97
[2017-05-02] VITALS (7 sets, daily range): BP systolic 120–147; BP diastolic 57–92; PULSE 67–80; RESP 18–19; TEMP 96.7–98.1; O2SAT 95–100
[2017-05-02] MEDS: ACETAMINOPHEN/HYDROcodone 325 MG/5 MG TAB PO PRN ×3 (00:37→17:08)
--- NOTE | 2017-05-02 07:14 | PD.VS.PN ---
Subjective POD #: 1 Procedure(s): L UE Access excision Subjective/Hospital Course incisional pain but "pressure" sensation gone hand ok Objective Vitals/I&O Date Time Temp Pulse Resp B/P Pulse Ox O2 Delivery O2 Flow Rate FiO2 05/02/17 03:20 96.7 76 18 122/57 95 05/01/17 23:10 97.3 82 19 124/63 97 05/01/17 19:39 97.2 83 19 122/58 98 05/01/17 17:45 98.4 75 16 122/64 98 05/01/17 16:45 98.6 80 15 118/69 95 Room Air 05/01/17 16:30 81 14 128/66 94 Room Air 05/01/17 16:26 98.6 86 15 135/69 94 Room Air 05/01/17 13:50 97.5 80 20 131/70 97 05/01/17 08:00 97.0 69 16 114/61 98 05/02/17 05/02/17 05/02/17 06:59 14:59 22:59 Intake Total 0 ml Balance 0 ml Exam: L UE incision covered but dressing c/d/i JERO wrap re-done this morning - soft and no hematoma palpable distal radial pulse good hand strength Laboratory Laboratory Tests Test 05/01/17 08:22 White Blood Count 10.5 Red Blood Count 2.83 Hemoglobin 7.5 Hematocrit 24.0 Mean Corpuscular Volume 84.7 Mean Corpuscular Hemoglobin 26.5 Mean Corpuscular Hemoglobin 31.3 Concent Red Cell Distribution Width 17.4 Platelet Count 302 Mean Platelet Volume 6.5 Neutrophils (%) (Auto) 72.3 Lymphocytes (%) (Auto) 15.7 Monocytes (%) (Auto) 7.8 Eosinophils (%) (Auto) 3.0 Basophils (%) (Auto) 1.2 Neutrophils # (Auto) 7.6 Lymphocytes # (Auto) 1.7 Monocytes # (Auto) 0.8 Eosinophils # (Auto) 0.3 Basophils # (Auto) 0.1 CBC Comment DIFF FINAL Differential Comment Sodium Level 138 Potassium Level 3.5 Chloride Level 106 Carbon Dioxide Level 20.0 Anion Gap 12 Blood Urea Nitrogen 47 Creatinine 5.48 Estimat Glomerular Filtration 9 Rate Random Glucose 81 Calcium Level 7.7 Date/Time Procedure Status Source Growth 04/27/17 19:50 Urine Culture - Final Complete Urine Random Urine 50-100,000 CFU/ML MIXED GRAM POSITIVE... Assessment and Plan Plan Doing well POD#1 Going for PD catheter insertion today ok to d/c from vascular surgery standpoint will arrange f/u in clinic in 2-3 weeks. Dressing off tomorrow. Continue L UE precautions for future autogenous access if PD fails. Gualberto Cutler MD May 02, 2017 07:14
[2017-05-02] MEDS: CALCITRIOL 0.25 MCG CAP PO SCH (08:58)
[2017-05-02] MEDS: oxyCODONE/ACETAMINOPHEN 10 MG/325 MG TAB PO SCH ×4 (08:58→21:46)
[2017-05-02] MEDS: buPROPion HCL 150 MG SUSTAINED RELEASE TAB PO SCH ×2 (08:59→21:46)
[2017-05-02] MEDS: CHOLECALCIFEROL (VIT D3) 1000 UNIT TAB PO SCH (08:59)
[2017-05-02] MEDS: FAMOTIDINE 20 MG TAB PO SCH ×2 (08:59→21:46)
[2017-05-02] MEDS: NICOTINE 21 MG/24 HR PATCH T-DERMAL SCH (09:00)
[2017-05-02] MEDS: SODIUM CHLORIDE 0.9% FLUSH 10 ML FLUSH IV FLUSH SCH ×2 (09:03→21:46)
[2017-05-02] MEDS: IRON SUCROSE INJ 200 MG in SODIUM CHLORIDE 0.9% INJ 100 ML IV SCH (09:04)
[2017-05-02 09:10] LABS: AUTOMATED NEUTROPHIL # 7.3 TH/MM3 (1.8-7.7); BASOPHIL # 0.1 TH/MM3 (0-0.2); BASOPHIL % 0.6 % (0.0-2.0); EOSINOPHIL # 0.3 TH/MM3 (0-0.4); EOSINOPHIL % 2.9 % (0.0-4.0); HEMATOCRIT 24.4 % (35.0-46.0); HEMO FLAGS DIFF FINAL; LYMPH % 15.9 % (9.0-44.0); LYMPHOCYTE # 1.6 TH/MM3 (1.0-4.8); MEAN CELL VOLUME 84.8 FL (80.0-100.0); MEAN CORPUSCULAR HEMOGLOBIN 26.6 PG (27.0-34.0); MEAN CORPUSCULAR HGB CONC 31.4 % (32.0-36.0); MONO % 8.2 % (0.0-8.0); NEUT % 72.4 % (16.0-70.0); PLATELET COUNT 311 TH/MM3 (150-450); RED BLOOD COUNT 2.88 MIL/MM3 (4.00-5.30); RED CELL DISTRIBUTION WIDTH 17.5 % (11.6-17.2)
[2017-05-02 09:27] LABS: POTASSIUM 3.6 MEQ/L (3.5-5.1)
--- NOTE | 2017-05-02 11:42 | HHI.PR ---
Subjective Remarks Revision of fistula sight done yesterday. Increased discomfort. Objective Vital Signs Date Time Temp Pulse Resp B/P Pulse Ox O2 Delivery O2 Flow Rate FiO2 05/02/17 08:56 97 21 05/02/17 08:00 97.6 78 18 147/85 98 05/02/17 03:20 96.7 76 18 122/57 95 05/01/17 23:10 97.3 82 19 124/63 97 05/01/17 19:39 97.2 83 19 122/58 98 05/01/17 17:45 98.4 75 16 122/64 98 05/01/17 16:45 98.6 80 15 118/69 95 Room Air 05/01/17 16:30 81 14 128/66 94 Room Air 05/01/17 16:26 98.6 86 15 135/69 94 Room Air 05/01/17 13:50 97.5 80 20 131/70 97 I/O 05/01/17 05/01/17 05/01/17 05/02/17 05/02/17 05/02/17 07:00 15:00 23:00 07:00 15:00 23:00 Intake Total 0 ml 460 ml 0 ml Output Total 10 ml Balance 0 ml 450 ml 0 ml Intake Oral 0 ml 360 ml 0 ml Other 100 ml Output Estimated Blood Loss 10 ml # Voids 2 2 1 # Bowel Movements 0 0 0 Result Diagram: 05/02/17 0657 05/02/17 0657 Procedures LUE access excision 05/01 Objective Remarks GENERAL: Alert and cooperative SKIN: Warm and dry.Dressing on left arm HEAD: Normocephalic. EYES: No scleral icterus. No injection or drainage. NECK: Supple, trachea midline. No JVD or lymphadenopathy. CARDIOVASCULAR: Regular rate and rhythm without murmurs, gallops, or rubs. RESPIRATORY: Breath sounds equal bilaterally. No accessory muscle use. GASTROINTESTINAL: Abdomen soft, non-tender, nondistended. MUSCULOSKELETAL: No cyanosis, or edema. BACK: Nontender without obvious deformity. No CVA tenderness. Medications and IVs Current Medications Medications (Trade) Dose Ordered Sig/Harjit Route Start Time Stop Time Status Last Admin (NS Flush) 2 ml UNSCH PRN IV FLUSH 04/27/17 21:45 (NS Flush) 2 ml BID IV FLUSH 04/28/17 09:00 05/02/17 09:03 (Tylenol) 650 mg Q4H PRN PO 04/27/17 21:45 (Narcan Inj) 0.4 mg UNSCH PRN IV 04/27/17 21:45 (Habitrol 21 Mg Patch.24 Hr) 1 patch DAILY T-DERMAL 04/28/17 09:00 04/30/17 09:32 Miscellaneous Information 1 HS T-DERMAL 04/28/17 21:00 04/30/17 21:00 Acetaminophen/ Hydrocodone Bitart 1 tab 1 tab Q4H PRN PO 04/27/17 23:45 05/02/17 04:51 (NS 1000 ml Inj) 1,000 ml @ 0 mls/hr Q0M PRN IV 04/28/17 10:06 05/01/17 09:44 Heparin Sodium (Porcine) 8000 units 8,000 units UNSCH PRN IVF 04/28/17 10:15 Sodium Chloride 1,000 ml @ 200 mls/hr Q5H PRN IV 04/28/17 10:06 (NS 1000 ml Inj) 1,000 ml @ 0 mls/hr Q0M PRN IV 04/28/17 10:06 (Mannitol Inj) 12.5 gm UNSCH PRN IV 04/28/17 10:15 (Albumin 25% Inj) 25 gm UNSCH PRN IV 04/28/17 10:15 (NS Flush) 5 ml UNSCH PRN IV FLUSH 04/28/17 10:15 (Heparin Inj) UNSCH PRN .XX 04/28/17 10:15 05/01/17 09:43 (Gentamicin (Dialysis) Inj) 20 mg UNSCH PRN IV 04/28/17 10:15 05/01/17 09:44 (Zofran Inj) 4 mg UNSCH PRN IV 04/28/17 10:15 04/30/17 13:14 (Tylenol) 650 mg UNSCH PRN PO 04/28/17 10:15 05/01/17 05:30 (Benadryl) 25 mg UNSCH PRN PO 04/28/17 10:15 (Nitrostat Sl) 0.4 mg UNSCH PRN SL 04/28/17 10:15 (Catapres) 0.1 mg UNSCH PRN PO 04/28/17 10:15 (Epogen Inj) 4,000 units UNSCH PRN IV 04/28/17 10:15 05/01/17 09:44 (Gelfoam 12 Mm/7 Mm Top) 1 foam UNSCH PRN TOP 04/28/17 10:15 (Pepcid) 10 mg BID PO 04/28/17 21:00 05/02/17 08:59 (NS Flush) UNSCH PRN IVF 04/28/17 12:30 (Heparin Inj) UNSCH PRN IV FLUSH 04/28/17 12:30 (Wellbutrin Sr) 150 mg BID PO 04/28/17 21:00 05/02/17 08:59 (Vitamin D3) 1,000 units DAILY PO 04/30/17 10:00 05/02/17 08:59 Calcitriol 0.25 mcg 0.25 mcg DAILY PO 04/30/17 10:00 05/02/17 08:58 Iron Sucrose 200 mg/Sodium Chloride 110 ml @ 110 mls/hr DAILY IV 05/02/17 09:00 05/04/17 09:59 05/02/17 09:04 Lactated Ringer's 1,000 ml @ 30 mls/hr Q24H PRN IV 05/01/17 13:45 05/04/17 13:44 (NS 500 ml Inj) 500 ml @ 30 mls/hr [id number] PRN IV 05/01/17 13:45 05/04/17 13:44 Miscellaneous Information ALL NURSING DEPARTME... UNSCH PRN .XX 05/01/17 16:45 05/02/17 16:44 (Percocet 10-325 Mg) 1 tab QID PO 05/01/17 21:00 05/02/17 08:58 Assessment and Plan Problem List: (1) Dialysis AV fistula malfunction Status: Acute Plan: Left arm fistula site revision yesterday. Dressing on . Vascular surgery consulted (2) ESRD (end stage renal disease) Status: Acute Plan: Patient with right jugular vas cath. Dialysis scheduled for tomorrow. Nephrology consulted. Plan for peritoneal dialysis in future. analytic manager consulted about getting dialysis arranged outpatient not yet done (3) Leukocytosis Status: Acute Plan: Improved with WBC 10.0 Afebrile (4) Hypocalcemia Status: Acute Plan: Patient has hypocalcemia, secondary hyperparathyroidism. I have started Vitamin D3 and Calcitriol. (5) Hypokalemia Status: Acute Plan: Potassium 3.6 (6) Anemia Status: Acute Plan: HGB 7.7 Anemia panel ordered showing iron deficiency will order Venofer Assessment and Plan Assessment and plan discussed with Dr. Solorzano Discussed Condition With Nursing Discharge Planning Home with [facility] Physician Attestation I and the TWISTING FRAME CHANGER have both examined this patient and reviewed this note and I agree with these findings and plan of care. Jennifer Calvo. [facility] May 02, 2017 11:42
--- NOTE | 2017-05-02 11:49 | HHI.PR ---
Subjective Subjective Notes Resting in bed Eager to get PD cath placed Objective Vitals/I&O Vital Signs Date Time Temp Pulse Resp B/P Pulse Ox O2 Delivery O2 Flow Rate FiO2 05/02/17 08:56 97 21 05/02/17 08:00 97.6 78 18 147/85 05/01/17 16:45 Room Air Labs Laboratory Tests Test 05/02/17 06:57 White Blood Count 10.0 Red Blood Count 2.88 Hemoglobin 7.7 Hematocrit 24.4 Mean Corpuscular Volume 84.8 Mean Corpuscular Hemoglobin 26.6 Mean Corpuscular Hemoglobin 31.4 Concent Red Cell Distribution Width 17.5 Platelet Count 311 Mean Platelet Volume 6.7 Neutrophils (%) (Auto) 72.4 Lymphocytes (%) (Auto) 15.9 Monocytes (%) (Auto) 8.2 Eosinophils (%) (Auto) 2.9 Basophils (%) (Auto) 0.6 Neutrophils # (Auto) 7.3 Lymphocytes # (Auto) 1.6 Monocytes # (Auto) 0.8 Eosinophils # (Auto) 0.3 Basophils # (Auto) 0.1 CBC Comment DIFF FINAL Differential Comment Sodium Level 138 Potassium Level 3.6 Chloride Level 103 Carbon Dioxide Level 28.0 Anion Gap 7 Blood Urea Nitrogen 35 Creatinine 4.47 Estimat Glomerular Filtration 11 Rate Random Glucose 85 Calcium Level 7.8 Date/Time Procedure Status Source Growth 04/27/17 19:50 Urine Culture - Final Complete Urine Random Urine 50-100,000 CFU/ML MIXED GRAM POSITIVE... Cardiovascular: Regular Lungs: Clear Abdomen: Non-distended, Non-tender Extremities: Other Narrative Exam LEFT wrist JERO bandage in place A/P Assessment and Plan 36 year old female with ESRD; requesting PD cath placement -Plan for OR tomorrow for PD cath placement -Renal diet today; NPO after MN -Hold anticoagulation after MN -Please arrange for dental treatment coordinator to [place] patient for PD cath placement Attending Statement patient seen and examined at bedside will plan for pd cath this week Nusrat Calderon May 02, 2017 11:49 Nii Wang MD May 04, 2017 21:23
--- NOTE | 2017-05-02 15:32 | HHI.NPPN ---
Subjective General Problems: Anemia, Edema, Hypertension Renal Failure: End Stage Renal Disease History of Present Illness 36-year-old white female with morbid obesity, asthma, hypertension, ESRD who is noncompliant with hemodialysis and stop coming to the dialysis center last year , she had admission in the hospital in November/December 2015 at that time she was on hemodialysis and afterward placed in the clinic and she refused to show up she was seen in the clinic one time and promised to resume her dialysis but she never did, she developed AV fistula pain in the left arm with the swelling near the arterial site. Additional Remarks Patient is alert, no SOB, sitting on chair. Objective Data Data 05/01/17 05/02/17 18:59 06:59 Intake Total 100 ml 360 ml Output Total 10 ml Balance 90 ml 360 ml Intake Oral 360 ml Other 100 ml Output Estimated Blood Loss 10 ml # Voids 3 # Bowel Movements 0 Vital Signs Date Time Temp Pulse Resp B/P Pulse Ox O2 Delivery O2 Flow Rate FiO2 05/02/17 14:30 16 05/02/17 12:00 97.9 80 18 120/73 96 05/02/17 08:56 97 21 05/02/17 08:00 97.6 78 18 147/85 98 05/02/17 03:20 96.7 76 18 122/57 95 05/01/17 23:10 97.3 82 19 124/63 97 05/01/17 19:39 97.2 83 19 122/58 98 05/01/17 17:45 98.4 75 16 122/64 98 05/01/17 16:45 98.6 80 15 118/69 95 Room Air 05/01/17 16:30 81 14 128/66 94 Room Air 05/01/17 16:26 98.6 86 15 135/69 94 Room Air -: 05/02/17 0657 05/02/17 0657 Physical Exam General Appearance: No Acute Distress, Comfortable Eyes Eye Exam: Pupils Equal Neck Neck Exam: Neck Supple Pulmonary Resp Exam: Breath Sounds Equal, No Distress, Rhonchi, Decreased Bases Cardiology CV Exam: Regular, Normal Sinus Rhythm Gastrointestinal/Abdomen GI Exam: Soft, Non-Tender, Bowel Sounds Present, Non-Distended Integumentary Skin Exam: Intact Extremeties Extremities Exam: Trace Edema Neurologic Neuro Exam: Alert, Awake, Oriented Psychiatric Psych Exam: Appropriate Responses Assessment/Plan Problem List: (1) ESRD (end stage renal disease) Plan: she has been non compliant. Considering PD. Patient has hypocalcemia, secondary hyperparathyroidism. started on Vitamin D3 and Calcitriol. HD done yesterday, post AVF excision, done yesterday. Will need PD catheter, possibly tomorrow. I discussed with the patient, Dr. De La Vega told her that he will continue her care. Manuel informed. To arrange out patient HD. (2) Uremia Plan: She agreed to do dialysis (3) Dialysis AV fistula malfunction Plan: Vascular surgery consulted (4) Leukocytosis Plan: improved. (5) Hypokalemia Plan: Malnutrition with low calcium and low protein (6) Hypocalcemia Plan: Likely due to secondary hyperparathyroidism. See above. (7) Hypertension Plan: Monitor BP. Problem Qualifiers (1) Hypertension: Qualified Code: I10 - Essential hypertension Timo Lugo MD May 02, 2017 15:32
[2017-05-02] MEDS: ONDANSETRON HCL 4 MG/2 ML VIAL IV PRN (18:15)
[2017-05-02] MEDS: REMOVE OLD NICODERM (NICOTINE) PATCH T-DERMAL SCH (21:00)
[2017-05-02] MEDS ORDERED: METOPROLOL TARTRATE 25 MG TAB PO PRN (21:30)
[2017-05-02] MEDS ORDERED: SODIUM CHLORID 0.9% 500 ML IV PRN (21:30)
[2017-05-02] MEDS ORDERED: CHLORHEXIDINE GLUCONATE 2 % 1 PACK (2 CLOTHS) TOPICAL PRN (21:30)
[2017-05-02] MEDS ORDERED: LACTATED RINGER'S 1000 ML IV PRN (21:30)
[2017-05-02] MEDS ORDERED: INSULIN HUMAN REGULAR 1,000 UNITS/10 ML VIAL SQ PRN (21:30)
[2017-05-02] MEDS ORDERED: POVIDONE IODINE 5% (ANTISEPSIS KIT) 4 APPLICATIONS EACH NARE PRN (21:30)
[2017-05-03 03:59] VITALS: BP 113/58; PULSE 76; RESP 19; TEMP 96.9; O2SAT 92
[2017-05-03] MEDS ORDERED: PROPOFOL 200 MG/20 ML AMP IV ONE (07:29)
[2017-05-03] MEDS ORDERED: NEOSTIGMINE 3 MG/3 ML SYR IV ONE (07:29)
[2017-05-03] MEDS ORDERED: PHENYLEPH/NS 1000 MCG/10 ML SYR IV ONE (07:30)
[2017-05-03] MEDS ORDERED: ONDANSETRON HCL 4 MG/2 ML VIAL IV PUSH ONE (07:30)
[2017-05-03 07:56] VITALS: BP 114/59; PULSE 81; RESP 18; TEMP 98; O2SAT 95
[2017-05-03 08:21] LABS: AUTOMATED NEUTROPHIL # 7.3 TH/MM3 (1.8-7.7); BASOPHIL # 0.1 TH/MM3 (0-0.2); BASOPHIL % 0.7 % (0.0-2.0); EOSINOPHIL # 0.3 TH/MM3 (0-0.4); EOSINOPHIL % 2.9 % (0.0-4.0); HEMATOCRIT 22.3 % (35.0-46.0); HEMO FLAGS DIFF FINAL; LYMPH % 16.1 % (9.0-44.0); LYMPHOCYTE # 1.6 TH/MM3 (1.0-4.8); MEAN CELL VOLUME 83.2 FL (80.0-100.0); MEAN CORPUSCULAR HEMOGLOBIN 27.4 PG (27.0-34.0); MEAN CORPUSCULAR HGB CONC 32.9 % (32.0-36.0); MONO % 8.2 % (0.0-8.0); NEUT % 72.1 % (16.0-70.0); PLATELET COUNT 296 TH/MM3 (150-450); RED BLOOD COUNT 2.68 MIL/MM3 (4.00-5.30); RED CELL DISTRIBUTION WIDTH 17.2 % (11.6-17.2); WHITE BLOOD COUNT 10.1 TH/MM3 (4.0-11.0)
[2017-05-03 08:22] LABS: APTT (PATIENT) 33.1 SEC (24.3-30.1); PROTHROMBIN TIME - PATIENT 11.3 SEC (9.8-11.6)
[2017-05-03] MEDS ORDERED: BUPIVACAINE/EPINEPHRINE 0.5% PF 10 ML VIAL ONE (08:33)
[2017-05-03 08:38] LABS: BICARBONATE 25.4 MEQ/L (21.0-32.0); POTASSIUM 3.5 MEQ/L (3.5-5.1)
[2017-05-03] MEDS: IRON SUCROSE INJ 200 MG in SODIUM CHLORIDE 0.9% INJ 100 ML IV SCH (09:00)
[2017-05-03] MEDS: CHOLECALCIFEROL (VIT D3) 1000 UNIT TAB PO SCH (09:00)
[2017-05-03] MEDS: FAMOTIDINE 20 MG TAB PO SCH (09:00)
[2017-05-03] MEDS: oxyCODONE/ACETAMINOPHEN 10 MG/325 MG TAB PO SCH ×3 (09:00→18:00)
[2017-05-03] MEDS: CALCITRIOL 0.25 MCG CAP PO SCH (09:00)
[2017-05-03] MEDS: SODIUM CHLORIDE 0.9% FLUSH 10 ML FLUSH IV FLUSH SCH (09:00)
[2017-05-03] MEDS: NICOTINE 21 MG/24 HR PATCH T-DERMAL SCH (09:00)
[2017-05-03] MEDS: buPROPion HCL 150 MG SUSTAINED RELEASE TAB PO SCH (09:00)
[2017-05-03] MEDS ORDERED: SUGAMMADEX SODIUM 200 MG/2 ML VIAL IV PUSH ONE ×2 (09:21)
[2017-05-03] MEDS ORDERED: FAMOTIDINE 20 MG/2 ML VIAL ONE (09:50)
[2017-05-03] MEDS ORDERED: MIDAZOLAM HCL 2 MG/2 ML VIAL ONE (09:50)
[2017-05-03] MEDS ORDERED: DEXAMETHASONE SOD PHOS 4 MG/ML VIAL ONE (09:50)
[2017-05-03] MEDS ORDERED: ceFAZolin INJ 1,000 MG VIAL IV ONE (10:22)
[2017-05-03] MEDS ORDERED: DO NOT ADM ANY ANTICOAGULANT DRUGS PRN (11:26)
--- NOTE | 2017-05-03 12:03 | HHI.PR ---
Immediate Post Op Note Procedure Date: May 03, 2017 Pre Op Diagnosis: CRF in need of dialysis access Post Op Diagnosis: same Surgeon: Nii Wang MD Assurance Assistant(s): see or sheet Procedure: laparoscopic PD cath placement Findings: good flow of saline through cath Complications: none Specimen(s) removed: none Estimated blood loss: 5cc Anesthesia: General Drains: None IVF (300) Patient to: PACU Patient Condition: Good Nii Wang MD May 03, 2017 12:02
--- NOTE | 2017-05-03 12:05 | MP ---
cc: GUALBERTO CUTLER MD DATE OF SURGERY: 05/01/2017 PREOPERATIVE DIAGNOSIS Thrombophlebitis left upper extremity arteriovenous fistula. POSTOPERATIVE DIAGNOSIS Thrombophlebitis left upper extremity arteriovenous fistula. PROCEDURE Excision of left upper extremity arteriovenous fistula. ATTENDING SURGEON Gualberto Cutler MD ANESTHESIA Local with sedation. INDICATION Ms. Fishman is a 36-year-old female with a left radiocephalic that has not been used in sometime. She has intense pain over this and ultrasound and clinical exam are suggestive of thrombophlebitis. After given the options of expectant management the patient has had worsening pain and erythema and there is concern for infection and as such she was taken to the operating room for excision of the fistula. DESCRIPTION OF PROCEDURE Informed consent was obtained from the patient. She was taken to the operating room and placed supine on the operating room table and appropriate time-out was taken to ensure the patient's identity, the operative site and planned procedure. A gram of vancomycin was initiated prior to skin incision and will be discontinued after a single preoperative dose. Vancomycin was chosen because of the patient's end-stage renal disease. Everyone in the room agreed with time-out and we proceeded. Her left arm was infiltrated with a combination of Marcaine and lidocaine. An incision was made over the course of the previous radial artery dissection. This was carried down to subcutaneous tissue with electrocautery. The fistula was identified and encircled with a vessel loop and dissected back towards the radial artery. The fistula was then clamped with a hemostat, transected and oversewn with 4-0 Prolene suture. Prior to oversewing it the patient was noted to have a palpable radial pulse. With the arterial component of the fistula oversewn the distal aspect was then excised thereby expressing significant amount of thrombus, it did not appear purulent. The vein was oversewn with 3-0 silk and the wound was irrigated, infiltrated with Marcaine and lidocaine and closed with 3-0 Polysorb and 4-0 Monocryl. Sponge and needle counts were correct at the end of the case. I was present and scrubbed and performed the entire procedure. Gualberto Cutler MD RJF/VANNA /9:53 PM 11:53 AM
--- NOTE | 2017-05-03 12:11 | HHI.PR ---
Subjective Remarks alert and oriented. Plan for PD site to be placed today. Objective Vital Signs Date Time Temp Pulse Resp B/P Pulse Ox O2 Delivery O2 Flow Rate FiO2 05/03/17 07:56 98.0 81 18 114/59 95 05/03/17 03:59 96.9 76 19 113/58 92 05/02/17 23:07 96.7 71 18 120/57 96 05/02/17 19:49 98.1 67 19 127/88 99 05/02/17 18:08 16 05/02/17 16:00 97.2 72 18 135/92 100 05/02/17 14:30 16 I/O 05/02/17 05/02/17 05/02/17 05/03/17 05/03/17 05/03/17 07:00 15:00 23:00 07:00 15:00 23:00 Intake Total 0 ml 1080 ml 0 ml Balance 0 ml 1080 ml 0 ml Intake Oral 0 ml 1080 ml 0 ml # Voids 1 3 1 # Bowel Movements 0 0 0 Result Diagram: 05/03/17 0655 05/03/17 0655 Procedures LUE access excision 05/01 Objective Remarks GENERAL: Alert and cooperative SKIN: Warm and dry.Dressing on left arm HEAD: Normocephalic. EYES: No scleral icterus. No injection or drainage. NECK: Supple, trachea midline. No JVD or lymphadenopathy. CARDIOVASCULAR: Regular rate and rhythm without murmurs, gallops, or rubs. RESPIRATORY: Breath sounds equal bilaterally. No accessory muscle use. GASTROINTESTINAL: Abdomen soft, non-tender, nondistended. MUSCULOSKELETAL: No cyanosis, or edema. BACK: Nontender without obvious deformity. No CVA tenderness. Medications and IVs Current Medications Medications (Trade) Dose Ordered Sig/Harjit Route Start Time Stop Time Status Last Admin (NS Flush) 2 ml UNSCH PRN IV FLUSH 04/27/17 21:45 (NS Flush) 2 ml BID IV FLUSH 04/28/17 09:00 05/02/17 21:46 (Tylenol) 650 mg Q4H PRN PO 04/27/17 21:45 (Narcan Inj) 0.4 mg UNSCH PRN IV 04/27/17 21:45 (Habitrol 21 Mg Patch.24 Hr) 1 patch DAILY T-DERMAL 04/28/17 09:00 04/30/17 09:32 Miscellaneous Information 1 HS T-DERMAL 04/28/17 21:00 04/30/17 21:00 Acetaminophen/ Hydrocodone Bitart 1 tab 1 tab Q4H PRN PO 04/27/17 23:45 05/02/17 17:08 (NS 1000 ml Inj) 1,000 ml @ 0 mls/hr Q0M PRN IV 04/28/17 10:06 05/01/17 09:44 Heparin Sodium (Porcine) 8000 units 8,000 units UNSCH PRN IVF 04/28/17 10:15 Sodium Chloride 1,000 ml @ 200 mls/hr Q5H PRN IV 04/28/17 10:06 (NS 1000 ml Inj) 1,000 ml @ 0 mls/hr Q0M PRN IV 04/28/17 10:06 (Mannitol Inj) 12.5 gm UNSCH PRN IV 04/28/17 10:15 (Albumin 25% Inj) 25 gm UNSCH PRN IV 04/28/17 10:15 (NS Flush) 5 ml UNSCH PRN IV FLUSH 04/28/17 10:15 (Heparin Inj) UNSCH PRN .XX 04/28/17 10:15 05/01/17 09:43 (Gentamicin (Dialysis) Inj) 20 mg UNSCH PRN IV 04/28/17 10:15 05/01/17 09:44 (Zofran Inj) 4 mg UNSCH PRN IV 04/28/17 10:15 05/02/17 18:15 (Tylenol) 650 mg UNSCH PRN PO 04/28/17 10:15 05/01/17 05:30 (Benadryl) 25 mg UNSCH PRN PO 04/28/17 10:15 (Nitrostat Sl) 0.4 mg UNSCH PRN SL 04/28/17 10:15 (Catapres) 0.1 mg UNSCH PRN PO 04/28/17 10:15 (Epogen Inj) 4,000 units UNSCH PRN IV 04/28/17 10:15 05/01/17 09:44 (Gelfoam 12 Mm/7 Mm Top) 1 foam UNSCH PRN TOP 04/28/17 10:15 (Pepcid) 10 mg BID PO 04/28/17 21:00 05/02/17 21:46 (NS Flush) UNSCH PRN IVF 04/28/17 12:30 (Heparin Inj) UNSCH PRN IV FLUSH 04/28/17 12:30 (Wellbutrin Sr) 150 mg BID PO 04/28/17 21:00 05/02/17 21:46 (Vitamin D3) 1,000 units DAILY PO 04/30/17 10:00 05/02/17 08:59 Calcitriol 0.25 mcg 0.25 mcg DAILY PO 04/30/17 10:00 05/02/17 08:58 (Venofer Inj/NS Inj) 110 ml @ 110 mls/hr DAILY IV 05/02/17 09:00 05/04/17 09:59 05/02/17 09:04 Oxycodone/ Acetaminophen 1 tab 1 tab QID PO 05/01/17 21:00 05/02/17 21:46 Lactated Ringer's 1,000 ml @ 30 mls/hr Q24H PRN IV 05/02/17 21:30 05/05/17 21:29 (NS 500 ml Inj) 500 ml @ 30 mls/hr [id number] PRN IV 05/02/17 21:30 05/05/17 21:29 Miscellaneous Information ALL NURSING DEPARTME... UNSCH PRN .XX 05/03/17 11:26 05/04/17 11:25 Assessment and Plan Problem List: (1) Dialysis AV fistula malfunction Status: Acute Plan: Left arm fistula site revision. Dressing on . (2) ESRD (end stage renal disease) Status: Acute Plan: Patient with right jugular vas cath. Dialysis scheduled for today Nephrology consulted. Plan for peritoneal dialysis in future. manager category consulted about getting dialysis arranged outpatient not yet done (3) Leukocytosis Status: Acute Plan: Improved with WBC 10.1 Afebrile (4) Hypocalcemia Status: Acute Plan: Patient has hypocalcemia, secondary hyperparathyroidism. I have started Vitamin D3 and Calcitriol. (5) Hypokalemia Status: Acute Plan: Potassium 3.5 (6) Anemia Status: Acute Plan: HGB 7.3 Anemia panel ordered showing iron deficiency will order Venofer Assessment and Plan Assessment and plan discussed with Dr. Solorzano Discussed Condition With Nursing. Discharge Planning Home with [facility] Awaiting dialysis to be arranged outpatient Physician Attestation I and the COMMUNITY CENTER DIRECTOR have both examined this patient and reviewed this note and I agree with these findings and plan of care. Jennifer Calvo. [facility] May 03, 2017 12:11
--- NOTE | 2017-05-03 12:12 | HHI.FF ---
Face to Face Verification Diagnosis: (1) Renal failure (2) AVF (arteriovenous fistula) (3) Hypertension Home Health Nursing Order: Medical education I have seen patient Tiffanie Fishman on 05/03/17. My clinical findings support the need for the requested home health care services because: Ltd mobility - disease progression Need for psychosocial assistance I certify that my clinical findings support that this patient is homebound because: Need for psychosocial assistance Jennifer Nelson May 03, 2017 12:12
--- NOTE | 2017-05-03 15:52 | HHI.NPPN ---
Subjective General Problems: Anemia, Edema, Hypertension Renal Failure: End Stage Renal Disease History of Present Illness 36-year-old white female with morbid obesity, asthma, hypertension, ESRD who is noncompliant with hemodialysis and stop coming to the dialysis center last year , she had admission in the hospital in November/December 2015 at that time she was on hemodialysis and afterward placed in the clinic and she refused to show up she was seen in the clinic one time and promised to resume her dialysis but she never did, she developed AV fistula pain in the left arm with the swelling near the arterial site. Additional Remarks Patient is alert, feeling better, no SOB, now agreed to go for HD. Objective Data Data 05/02/17 05/03/17 19:00 07:00 Intake Total 600 ml 480 ml Balance 600 ml 480 ml Intake Oral 600 ml 480 ml # Voids 1 3 # Bowel Movements 0 0 Vital Signs Date Time Temp Pulse Resp B/P Pulse Ox O2 Delivery O2 Flow Rate FiO2 05/03/17 12:00 98.4 92 16 149/69 92 Nasal Cannula 2 05/03/17 11:45 89 16 164/75 95 Nasal Cannula 2 05/03/17 11:30 98.2 97 16 97/51 97 Nasal Cannula 2 05/03/17 07:56 98.0 81 18 114/59 95 05/03/17 03:59 96.9 76 19 113/58 92 05/02/17 23:07 96.7 71 18 120/57 96 05/02/17 19:49 98.1 67 19 127/88 99 05/02/17 18:08 16 05/02/17 16:00 97.2 72 18 135/92 100 -: 05/03/17 0655 05/03/17 0655 Physical Exam General Appearance: No Acute Distress, Comfortable Eyes Eye Exam: Pupils Equal Neck Neck Exam: Neck Supple Pulmonary Resp Exam: Breath Sounds Equal, No Distress, Rhonchi, Decreased Bases Cardiology CV Exam: Regular, Normal Sinus Rhythm Gastrointestinal/Abdomen GI Exam: Soft, Non-Tender, Bowel Sounds Present, Non-Distended Integumentary Skin Exam: Intact Extremeties Extremities Exam: Trace Edema Neurologic Neuro Exam: Alert, Awake, Oriented Psychiatric Psych Exam: Appropriate Responses Assessment/Plan Problem List: (1) ESRD (end stage renal disease) Plan: she has been non compliant. Patient has hypocalcemia, secondary hyperparathyroidism. started on Vitamin D3 and Calcitriol. HD done yesterday, post AVF excision, done yesterday. Has PD catheter,done. Now going for HD. Out patient HD arranged at [facility] M[facility] at 4.00 pm. (2) Uremia Plan: She agreed to do dialysis (3) Dialysis AV fistula malfunction Plan: Vascular surgery consulted (4) Leukocytosis Plan: improved. (5) Hypokalemia Plan: Malnutrition with low calcium and low protein (6) Hypocalcemia Plan: Likely due to secondary hyperparathyroidism. See above. (7) Hypertension Plan: Monitor BP. Problem Qualifiers (1) Hypertension: Qualified Code: I10 - Essential hypertension Timo Lugo MD May 03, 2017 15:52
[2017-05-03 16:00] VITALS: BP 140/84; PULSE 89; RESP 18; TEMP 97.3; O2SAT 92
[2017-05-03] MEDS ORDERED: CALC.25 PO (16:43)
[2017-05-03] MEDS ORDERED: BUPR150CR PO (16:43)
--- NOTE | 2017-05-03 16:55 | HHI.DS ---
Discharge Summary Admission Date Apr 27, 2017 at 21:04 Admitting Diagnosis av fistula failure, renal failure, metabolic derangement. (1) Renal failure (2) Anemia (3) Dialysis AV fistula malfunction Procedures LUE access excision 05/01 Brief History Patient is a 36-year-old female with history of renal failure, anemia, asthma, who presents today with complaints of left upper extremity pain. Patient has an AV fistula in her left upper extremity. She states that she lost her thrill yesterday. She reports pain and swelling at the fistula site. She states she' s not had dialysis for a year. When asked why she was not getting dialysis, she reported it was secondary to financial difficulties. She does make some urine. She states last time she had blood work was probably a year ago. She seen Dr. De La Vega in the past. She denies a chest pain, chest pressure. She does report lower extremity edema that is been worsening over last several weeks. She also reports dyspnea on exertion. CBC/BMP: 05/03/17 0655 05/03/17 0655 Significant Findings Laboratory Tests Test 05/01/17 05/02/17 05/03/17 08:22 06:57 06:55 Red Blood Count 2.83 MIL/MM3 2.88 MIL/MM3 2.68 MIL/MM3 (4.00-5.30) (4.00-5.30) (4.00-5.30) Hemoglobin 7.5 GM/DL 7.7 GM/DL 7.3 GM/DL (11.6-15.3) (11.6-15.3) (11.6-15.3) Hematocrit 24.0 % 24.4 % 22.3 % (35.0-46.0) (35.0-46.0) (35.0-46.0) Mean Corpuscular Hemoglobin 26.5 PG 26.6 PG (27.0-34.0) (27.0-34.0) Mean Corpuscular Hemoglobin 31.3 % 31.4 % Concent (32.0-36.0) (32.0-36.0) Red Cell Distribution Width 17.4 % 17.5 % (11.6-17.2) (11.6-17.2) Mean Platelet Volume 6.5 FL 6.7 FL 6.9 FL (7.0-11.0) (7.0-11.0) (7.0-11.0) Neutrophils (%) (Auto) 72.3 % 72.4 % 72.1 % (16.0-70.0) (16.0-70.0) (16.0-70.0) Carbon Dioxide Level 20.0 MEQ/L (21.0-32.0) Blood Urea Nitrogen 47 MG/DL (7-18) 35 MG/DL (7-18) 34 MG/DL (7-18) Creatinine 5.48 MG/DL 4.47 MG/DL 5.10 MG/DL (0.50-1.00) (0.50-1.00) (0.50-1.00) Estimat Glomerular Filtration 9 ML/MIN (>89) 11 ML/MIN (>89) 9 ML/MIN (>89) Rate Calcium Level 7.7 MG/DL 7.8 MG/DL 8.1 MG/DL (8.5-10.1) (8.5-10.1) (8.5-10.1) Monocytes (%) (Auto) 8.2 % (0.0-8.0) 8.2 % (0.0-8.0) Activated Partial 33.1 SEC Thromboplast Time (24.3-30.1) PE at Discharge GENERAL: Alert and cooperative SKIN: Warm and dry.Dressing on left arm HEAD: Normocephalic. EYES: No scleral icterus. No injection or drainage. NECK: Supple, trachea midline. No JVD or lymphadenopathy. CARDIOVASCULAR: Regular rate and rhythm without murmurs, gallops, or rubs. RESPIRATORY: Breath sounds equal bilaterally. No accessory muscle use. GASTROINTESTINAL: Abdomen soft, non-tender, nondistended. MUSCULOSKELETAL: No cyanosis, or edema. BACK: Nontender without obvious deformity. No CVA tenderness. Hospital Course Patient is a 36-year-old female with history of renal failure, anemia, asthma, who presents today with complaints of left upper extremity pain. Patient has an AV fistula in her left upper extremity. She states that she lost her thrill day prior to admission. She reports pain and swelling at the fistula site. She states she's not had dialysis for a year. When asked why she was not getting dialysis, she reported it was secondary to financial difficulties. During her hospital course she did have a fistula revision which she tolerated well without complications. She also received dialysis via a Vas cath during her hospitalization. PD catheter was placed for future dialysis. Her plan is to get PD dialysis in the future once her site is ready. In the mean time she will be getting hemodialysis via her Vas cath. She has scheduled dialysis on Monday. Her plan is to be discharged tonight with [facility] to come out tomorrow. She has a follow up appt with Dr. Solorzano for Monday. Pt Condition on Discharge: Good Discharge Disposition: Disch w/ Home Health Serv Discharge Instructions DIET: Follow Instructions for: Renal Failure Diet Activities you can perform: Regular-No Restrictions Follow up Referrals: Nephrology - [address] Lugo PCP Follow-up - 1 Week with [facility] @ [facility] with Gualberto Cutler MD New Medications: Bupropion HCl ER 12 HR (Wellbutrin SR 12 HR) 150 Mg Tab 150 MG PO BID Depression Control #60 TAB Calcitriol (Rocaltrol) 0.25 Mcg Cap 0.25 MCG PO DAILY Electrolyte Replacement #30 CAP Additional Information I and the [employer] have both examined this patient and reviewed this note and I agree with these findings and plan of care. Jennifer Calvo. [employer] May 03, 2017 16:55
[2017-05-03] MEDS: HEPARIN SODIUM - IV 10,000 UNITS/10 ML VIAL PRN (17:45)
[2017-05-03] MEDS: GENTAMICIN SULFATE (DIALYSIS USE ONLY) 20 MG/2 ML VIAL IV PRN (17:46)
[2017-05-03] MEDS: EPOETIN ALFA 10,000 UNITS/ML VIAL IV PRN (17:46)
== END 2017-05-03 19:54 | disposition home health service (06) | DRG 252 ==
LOC: NEPE 17:13 → NEDA 21:04 → N06B 22:52
PROVIDERS: ADMIT Family Medicine; ATTEND Family Medicine
PROC: 5A1D60Z (ICD-10-PCS; 2017-04-28)
PROC: 05HM33Z Insertion of Infusion Device into Right Internal Jugular Vein, Percutaneous Approach (ICD-10-PCS; 2017-04-28)
PROC: 05CF0ZZ Extirpation of Matter from Left Cephalic Vein, Open Approach (ICD-10-PCS; 2017-05-01)
PROC: 03LC0ZZ Occlusion of Left Radial Artery, Open Approach (ICD-10-PCS; principal; 2017-05-01 15:18)
PROC: 0WHG43Z Insertion of Infusion Device into Peritoneal Cavity, Percutaneous Endoscopic Approach (ICD-10-PCS; 2017-05-03)
DX: T82.868A Thrombosis due to vascular prosthetic devices, implants and grafts, initial encounter (principal); N18.6 End stage renal disease; E46 Unspecified protein-calorie malnutrition; N25.81 Secondary hyperparathyroidism of renal origin; I12.0 Hypertensive chronic kidney disease with stage 5 chronic kidney disease or end stage renal disease; Z68.43 Body mass index [BMI] 50.0-59.9, adult; F17.210 Nicotine dependence, cigarettes, uncomplicated; D50.9 Iron deficiency anemia, unspecified; J45.909 Unspecified asthma, uncomplicated; F41.9 Anxiety disorder, unspecified; F32.9 Major depressive disorder, single episode, unspecified; K21.9 Gastro-esophageal reflux disease without esophagitis; E87.6 Hypokalemia; E78.5 Hyperlipidemia, unspecified; E66.01 Morbid (severe) obesity due to excess calories; N30.90 Cystitis, unspecified without hematuria; Y83.2 Surgical operation with anastomosis, bypass or graft as the cause of abnormal reaction of the patient, or of later complication, without mention of misadventure at the time of the procedure; Z99.2 Dependence on renal dialysis; Z91.19 Patient's noncompliance with other medical treatment and regimen
CPT/HCPCS: 36556; 71010; 76937; 77001; 80048; 80053; 80061; 80074; 81001; 82306; 82607; 82728; 82746; 82948; 83036; 83540; 83550; 83735; 83970; 84100; 84155; 84439; 84443; 84481; 85007; 85025; 85027; 85044; 85610; 85730; 86850; 86900; 86901; 86920; 87086; 90935; 93005; 93931; 93970; 93998; 96374; 96375; C1752; J0690; J0696; J1100; J1580; J1644; J1756; J2250; J2370; J2405; J2710; J2720; J3010; J3370; J7030; Q4081

== ENCOUNTER 2017-05-14 12:11 | Emergency (ER) | payer MEDICARE, MEDICAID ==
[~2017-05-14] VITALS: Ht 167.6 cm; Wt 140.2 kg
[~2017-05-14 12:11] MED LIST changes: -ALBU1AER INH; +BUPR150CR PO; +CALC.25 PO; -DULE100A PO; -FURO20TA PO; -LORA0.5T PO; -METO50TA PO; -NEUR600T PO; -PHEN12.5 PO; -PRIL40CA PO; -PROZ40CA PO; -RENATAB6 PO; -SPIR25TA PO; -TRAZ100 PO; -TYLE3 PO; -Z.0.WALKERFRONT; -[UNRECOGNIZED DRUG - REMARK]
[2017-05-14 15:00] VITALS: BP 163/92; PULSE 101; RESP 18; TEMP 98.5; O2SAT 98
--- NOTE | 2017-05-14 15:49 | PD ---
HPI Chief Complaint: Wound/Suture/Staple Re-Check Time Seen by Provider: 15:01 Travel History International Travel<30 days: No Contact w/Intl Traveler<30days: No Traveled to known affect area: No History of Present Illness HPI 36-year-old female with history of chronic kidney disease has temporary hemodialysis port in the right jugular. On dialysis on Monday with the dressing change one of the sutures securing the port to the skin became removed and she was instructed to come to the emergency department to have 1 suture placed to help secure the port down. There is no bleeding from the site. She reports dialysis went as planned that day. There has been no bleeding from the site. There are been no swelling, pain, or redness of the site. PFSH Past Medical History Arthritis: No Asthma: Yes Autoimmune Disease: No Blood Disorders: No Anxiety: Yes Depression: Yes Heart Rhythm Problems: No Cancer: No Cardiovascular Problems: Yes High Cholesterol: Yes Chemotherapy: No Chest Pain: No Congestive Heart Failure: No COPD: No Cerebrovascular Accident: No Diabetes: No Dialysis: Yes Diminished Hearing: No Endocrine: No GERD: Yes Glaucoma: No Genitourinary: Yes Headaches: No Hepatitis: No Hiatal Hernia: No Hypertension: Yes Immune Disorder: No Kidney Stones: No Medical other: No Musculoskeletal: Yes Neurologic: No Psychiatric: Yes Reproductive: No Respiratory: Yes Migraines: No Radiation Therapy: No Renal Failure: Yes (FISTULA TO LUE) Seizures: No Sleep Apnea: No Thyroid Disease: No Ulcer: No ?: Not LMP: 1 WEEK AGO Past Surgical History Abdominal Surgery: No AICD: No Arteriovenous Shunt: No Body Medical Devices: PLATE AND SCREWS IN RIGHT ARM. Cardiac Surgery: No Ear Surgery: No Endocrine Surgery: No Eye Surgery: No Genitourinary Surgery: No Gynecologic Surgery: No Joint Replacement: No Neurologic Surgery: No Oral Surgery: No Pacemaker: No Thoracic Surgery: No Other Surgery: Yes (left forearm fistula 05/10/2012) Social History Alcohol Use: No Tobacco Use: Yes (2 ppd) Substance Use: No Allergies-Medications (Allergen,Severity, Reaction): Coded Allergies: diphenhydramine (Unverified Allergy, Severe, Anaphylaxis, 05/09/17) doxycycline (Unverified Allergy, Severe, Anaphylaxis, 05/09/17) minocycline (Unverified Allergy, Severe, Anaphylaxis, 05/09/17) tigecycline (Unverified Allergy, Severe, Anaphylaxis, 05/09/17) Reported Meds & Prescriptions Reported Meds & Active Scripts Active Review of Systems Except as stated in HPI: all other systems reviewed are Neg Physical Exam Narrative GENERAL: Alert, well-appearing female in no acute distress. SKIN: Warm and dry. Dialysis port present to the right superior anterior chest wall secured on one edge. There is no swelling, redness, drainage from the port site. HEAD: Normocephalic. EYES: No scleral icterus. No injection or drainage. NECK: Supple, trachea midline. No JVD or lymphadenopathy. CARDIOVASCULAR: Regular rate and rhythm without murmurs, gallops, or rubs. RESPIRATORY: Breath sounds equal bilaterally. No accessory muscle use. GASTROINTESTINAL: Abdomen soft, non-tender, nondistended. Data Data Last Documented VS [facility] Medical Decision Making Medical Screen Exam Complete: Yes Emergency Medical Condition: Yes Differential Diagnosis Report secured with 1 suture Narrative Course 36-year-old female with history of chronic kidney disease has temporary hemodialysis port in the right jugular. On dialysis on Monday with the dressing change one of the sutures securing the port to the skin became removed and she was instructed to come to the emergency department to have 1 suture placed to help secure the port down. There is no bleeding from the site. She reports dialysis went as planned that day. There has been no bleeding from the site. The procedure was discussed with my Attending who agrees to secure the port anchor with 1 suture. The port is secured on one edge. One suture reapplied to help secure the port anchor in place. Patient tolerated procedure well. Return precautions discussed. Patient verbalizes understanding and agrees to plan. Procedures Procedure Narrative Port secured with 1 suture LOCATION: [Right anterior chest wall] NUMBER OF STITCHES/AVIVA: [1] REPAIR: The area was prepped with Betadine and chlorhexidine and sterilely draped. One suture was used to secure reports anterior chest wall. 3-0 Ethilon was used to secure report. A sterile dressing was applied. The patient was advised to keep the dressing clean and dry. Patient tolerated the procedure well. Diagnosis Primary Impression: Encounter for change or removal of wound dressing Referrals: Primary Care Physician Scripts No Active Prescriptions or Reported Meds Disposition: 01 DISCHARGE HOME Condition: Stable Randa Rojas [facility] May 14, 2017 15:49
== END 2017-05-14 16:13 | disposition home or self-care (01) ==
LOC: PHED 12:11
DX: Z45.2 Encounter for adjustment and management of vascular access device (principal); I12.9 Hypertensive chronic kidney disease with stage 1 through stage 4 chronic kidney disease, or unspecified chronic kidney disease; N18.9 Chronic kidney disease, unspecified; E78.00 Pure hypercholesterolemia, unspecified; F17.210 Nicotine dependence, cigarettes, uncomplicated; Z99.2 Dependence on renal dialysis
CPT/HCPCS: 99281

== ENCOUNTER → 2017-08-07 | Outpatient (CLI) | payer MEDICARE, MEDICAID ==
[~2017-08-07] MED LIST changes: +AMBI10TA PO; -BUPR150CR PO; -CALC.25 PO; +OMEP40CA2 PO; +ZOLP10TA3 PO
[2017-08-07 14:51] LABS: FREE T4 0.83 NG/DL (0.76-1.46)
== END ==
LOC: CLAB 12:29
PROVIDERS: ATTEND Family Medicine
DX: G25.81 Restless legs syndrome (principal); Z68.42 Body mass index [BMI] 45.0-49.9, adult
CPT/HCPCS: 36415; 84439; 84443